=== PATIENT | female | born 1960 | race Caucasian/White ===

== ENCOUNTER 2017-06-08 08:08 | Inpatient (IN) | payer BC, OTHER ==
[~2017-06-08] VITALS: Ht 175.3 cm; Wt 108.9 kg
--- NOTE | 2017-06-08 08:10 | PHYS DOC ---
Past Medical History Past Medical History: Hypertension Past Surgical History: No Surgical History Alcohol Use: Occasionally Drug Use: None Adult General Chief Complaint Chief Complaint: NAUSEA/VOMITING/DIARRHA HPI HPI Patient is a 57 year old female presenting to the emergency department for evaluation of vomiting and generalized malaise fatigue abdominal pain fevers and chills. Symptoms started 2 days ago and she has tried drinking water and Gatorade for 2 days however she has been unable to hold anything down. Patient says that the abdominal pain is diffuse and crampy and mostly associated with the cough and vomiting. Emesis is nonbloody nonbilious and was initially food but now it is yellowish clear and is decreasing in amount. She says that she has been having normal bowel movements with no bloody diarrhea. She has been taking Tylenol and ibuprofen for pain and fever. She says her only medical problem is hypertension. She is tachycardic and slightly hypoxic but is nontoxic-appearing. She reports that she has had a lower right abdominal wall abscess for approximately one week but she does not know if she was bit by a spider or anything that she can think of. Review of Systems Review of Systems Constitutional: + fever, chills [] Eyes: Denies change in visual acuity, redness, or eye pain [] HENT: Denies nasal congestion or sore throat [] Respiratory: + cough. No shortness of breath [] Cardiovascular: No additional information not addressed in HPI [] GI: + abdominal pain, nausea, vomiting. No bloody stools or diarrhea [] : Denies dysuria or hematuria [] Musculoskeletal: Denies back pain or joint pain [] Integument: Denies rash or skin lesions [] Neurologic: Denies headache, focal weakness or sensory changes [] All other systems were reviewed and found to be within normal limits, except as documented in this note. Current Medications Current Medications Current Medications Medications (Trade) Dose Ordered Sig/Alex Start Time Stop Time Status Last Admin Dose Admin Acetaminophen (Tylenol) 650 mg PRN Q4HRS PRN 06/08/17 10:15 06/09/17 10:14 Ceftriaxone Sodium 2 gm/ Dextrose 100 ml @ 200 mls/hr Q24H 06/08/17 09:15 UNV Ceftriaxone Sodium (Rocephin) 2 gm 1X ONCE 06/08/17 09:30 06/08/17 09:31 DC 06/08/17 09:38 2 GM Fentanyl Citrate (Fentanyl 2ml Vial) 50 mcg PRN Q2HR PRN 06/08/17 10:15 06/09/17 10:14 Info (Do NOT chart on this entry -- for MONITORING) 1 each PRN DAILY PRN 06/08/17 09:45 06/10/17 09:44 Iohexol (Omnipaque 300 Mg/ml) 60 ml 1X ONCE 06/08/17 09:45 06/08/17 09:46 DC 06/08/17 10:18 60 ML Magnesium Oxide (Magnesium Oxide) 800 mg DAILY 06/08/17 10:00 06/08/17 09:39 800 MG Ondansetron HCl (Zofran) 4 mg PRN Q8HRS PRN 06/08/17 10:15 06/09/17 10:14 Promethazine HCl 12.5 mg/Sodium Chloride 50.5 ml @ 101 mls/hr 1X ONCE 06/08/17 10:00 06/08/17 10:29 DC 06/08/17 10:58 101 MLS/HR Sodium Chloride 1,000 ml @ 1,000 mls/hr 1X ONCE 06/08/17 09:30 06/08/17 10:29 DC 06/08/17 09:37 1,000 MLS/HR Allergies Allergies Allergies Coded Allergies Type Severity Reaction Last Updated Verified No Known Drug Allergies 04/25/15 No Physical Exam Physical Exam Constitutional: Well developed, well nourished, ill appearing but nontoxic HENT: Normocephalic, atraumatic, bilateral external ears normal, oropharynx moist, no oral exudates, nose normal. [] Eyes: PERRLA, EOMI, conjunctiva normal, no discharge. [] Neck: Normal range of motion, no tenderness, supple, no stridor. [] Cardiovascular:Heart rate tachycardic with regular rhythm, no murmur [] Lungs & Thorax: Bilateral breath sounds clear to auscultation [] Abdomen: Bowel sounds normal, soft, no tenderness, no masses, no pulsatile masses. [] Skin: On right lower abdomen there is approximately 2 x 2 centimeter abscess with overlying scab that I removed and then a moderate amount of purulence was drained and a culture was sent Back: No tenderness, no CVA tenderness. [] Extremities: No tenderness, no cyanosis, no clubbing, ROM intact, no edema. [] Neurologic: Alert and oriented X 3, normal motor function, normal sensory function, no focal deficits noted. [] Current Patient Data Vital Signs Vital Signs Date Time Temp Pulse Resp B/P (MAP) Pulse Ox O2 Delivery O2 Flow Rate FiO2 06/08/17 09:50 96 20 108/58 (75) 97 Nasal Cannula 2.0 06/08/17 09:20 101.1 101.1 Lab Values Laboratory Tests Test 06/08/17 08:15 06/08/17 08:30 06/08/17 09:00 Urine Collection Type Void Urine Color Alexis Urine Clarity Turbid Urine pH 5.5 Urine Specific [place] >=1.030 Urine Protein 100 mg/dL (NEG-TRACE) Urine Glucose (UA) Negative mg/dL (NEG) Urine Ketones (Stick) Trace mg/dL (NEG) Urine Blood Moderate (NEG) Urine Nitrite Positive (NEG) Urine Bilirubin Moderate (NEG) Urine Urobilinogen Dipstick 1.0 mg/dL (0.2 mg/dL) Urine Leukocyte Esterase Moderate (NEG) Urine RBC 3-5 /HPF (0-2) Urine WBC >40 /HPF (0-4) Urine Squamous Epithelial Cells Many /LPF Urine Bacteria Many /HPF (0-FEW) Urine Mucus Marked /LPF White Blood Count 23.1 x10^3/uL (4.0-11.0) H Red Blood Count 4.91 x10^6/uL (3.50-5.40) Hemoglobin 14.7 g/dL (12.0-15.5) Hematocrit 43.7 % (36.0-47.0) Mean Corpuscular Volume 89 fL (79-100) Mean Corpuscular Hemoglobin 30 pg (25-35) Mean Corpuscular Hemoglobin Concent 34 g/dL (31-37) Red Cell Distribution Width 13.7 % (11.5-14.5) Platelet Count 277 x10^3/uL (140-400) Neutrophils (%) (Auto) 96 % (31-73) H Lymphocytes (%) (Auto) 1 % (24-48) L Monocytes (%) (Auto) 3 % (0-9) Eosinophils (%) (Auto) 1 % (0-3) Basophils (%) (Auto) 0 % (0-3) Neutrophils # (Auto) 22.1 x10^3uL (1.8-7.7) H Lymphocytes # (Auto) 0.3 x10^3/uL (1.0-4.8) L Monocytes # (Auto) 0.6 x10^3/uL (0.0-1.1) Eosinophils # (Auto) 0.1 x10^3/uL (0.0-0.7) Basophils # (Auto) 0.0 x10^3/uL (0.0-0.2) Segmented Neutrophils % 82 % (35-66) H Band Neutrophils % 15 % (0-9) H Monocytes % 3 % (0-10) Platelet Estimate Adequate (ADEQUATE) Prothrombin Time 13.2 SEC (11.7-14.0) Prothrombin Time INR 1.1 (0.8-1.1) PTT 38 SEC (24-38) D-Dimer (Thao) 3.98 ug/mlFEU (0.00-0.50) H Sodium Level 133 mmol/L (136-145) L Potassium Level 3.8 mmol/L (3.5-5.1) Chloride Level 93 mmol/L (98-107) L Carbon Dioxide Level 28 mmol/L (21-32) Anion Gap 12 (6-14) Blood Urea Nitrogen 29 mg/dL (7-20) H Creatinine 1.5 mg/dL (0.6-1.0) H Estimated GFR (Cockcroft-Gault) 36.1 BUN/Creatinine Ratio 19 (6-20) Glucose Level 131 mg/dL (70-99) H Lactic Acid Level 3.2 mmol/L (0.4-2.0) H Calcium Level 8.8 mg/dL (8.5-10.1) Magnesium Level 1.5 mg/dL (1.8-2.4) L Total Bilirubin 1.9 mg/dL (0.2-1.0) H Aspartate Amino Transferase (AST) 23 U/L (15-37) Alanine Aminotransferase (ALT) 23 U/L (14-59) Alkaline Phosphatase 26 U/L (46-116) L Creatine Kinase 350 U/L (26-192) H Troponin I Quantitative < 0.017 ng/mL (0.000-0.055) QM-Rbj-R-Type Natriuretic Peptide 369 pg/mL (0-124) H Total Protein 7.4 g/dL (6.4-8.2) Albumin 3.2 g/dL (3.4-5.0) L Albumin/Globulin Ratio 0.8 (1.0-1.7) L Lipase 61 U/L (73-393) L Influenza Type A Antigen Negative (NEGATIVE) Influenza Type B Antigen Negative (NEGATIVE) Laboratory Tests 06/08/17 08:30 Laboratory Tests 06/08/17 08:30 Microbiology 06/08/17 Gram Stain - Final, Complete EKG EKG [] Radiology/Procedures Radiology/Procedures Single view chest and upright and supine AP views abdomen 06/08/2017 Clinical indication: Nausea. Comparison: None. Findings: Cardiac and mediastinal silhouettes are unremarkable. There is a tiny calcified granuloma in the right midlung. No pleural effusion, pneumothorax or focal consolidation. There is a nonobstructive bowel gas pattern with scattered colonic gas and stool. No pneumoperitoneum or evidence of portal venous gas. There is a 2.4 cm calcific density overlying the left iliac wing. Impression: 1. No acute cardiopulmonary abdomen the. 2. No radiographic evidence of bowel obstruction. 3. 2.4 cm calcific density overlying the left iliac wing, indeterminate. Nonemergent CT pelvis is recommended for further evaluation. These results were discussed with Dr. Jane of the emergency service by telephone at 9:10 AM 06/08/[address] Khloe Almeida. DICTATED and SIGNED BY: KHLOE ALMEIDA MD DATE: 06/08/1705 Course & Med Decision Making Course & Med Decision Making Patient meets sepsis criteria but not severe sepsis given she is not hypotensive or have a lactate over 4. Patient is getting IV fluids in addition to IV antibiotics. Pressors not needed this time. Source is not completely Clear given urine is somewhat contaminated. Abscess does not appear horrible to me as it is fairly small and spontaneously draining. Patient may get CT angiogram of chest if her d-dimer is elevated given she is somewhat hypoxic on presentation. Patient will get CT abdomen and pelvis regardless. CTs did not show any acute process. Patient is improving with fluids and antibiotics. She will be admitted to the hospital in guarded condition. Critical care time of 35 minutes. Dragon Disclaimer Dragon Disclaimer This electronic medical record was generated, in whole or in part, using a voice recognition dictation system. Departure Departure Impression: Primary Impression: Sepsis Additional Impressions: UTI (urinary tract infection) Abscess Lactic acid acidosis Hypomagnesemia Disposition: ADMITTED INPATIENT Admitting Physician: Ирина Wan Condition: STABLE Referrals: SO OROURKE (PCP) Problem Qualifiers Primary Impression: Sepsis Sepsis type: sepsis due to unspecified organism Qualified Codes: A41.9 - Sepsis, unspecified organism MAURICIO JANE DO Jun 08, 2017 08:10
[2017-06-08] MEDS ORDERED: fentaNYL PF VIAL 100 MCG/2 ML VIAL IV ONE (08:30)
[2017-06-08] MEDS ORDERED: IV NORMAL SALINE 1000ML BAG 1,000 ML IV ONE ×2 (08:30→09:30)
[2017-06-08] MEDS ORDERED: ONDANSETRON PF 4 MG/2 ML VIAL. IV ONE (08:30)
[2017-06-08 08:48] LABS: BASO % 0 % (0-3); EOS % 1 % (0-3); HEMATOCRIT 43.7 % (36.0-47.0); HEMOGLOBIN 14.7 g/dL (12.0-15.5); LYMPH # 0.3 x10^3/uL (1.0-4.8); LYMPH % 1 % (24-48); MEAN CORPUSCULAR HEMOGLOBIN 30 pg (25-35); MEAN CORPUSCULAR HGB CONC 34 g/dL (31-37); MEAN CORPUSCULAR VOLUME 89 fL (79-100); MONO % 3 % (0-9); NEUT % 96 % (31-73); PLATELET COUNT 277 x10^3/uL (140-400); RED BLOOD COUNT 4.91 x10^6/uL (3.50-5.40); RED CELL DISTRIBUTION WIDTH 13.7 % (11.5-14.5); WHITE BLOOD COUNT 23.1 x10^3/uL (4.0-11.0)
[2017-06-08 08:52] LABS: BILIRUBIN,URINE MODERATE (NEG); GLUCOSE,URINE NEGATIVE (NEG); NITRITE,URINE POSITIVE (NEG); PH,URINE 5.5; PROTEIN,URINE 100 mg/dL (NEG-TRACE)
[2017-06-08 08:53] LABS: BACTERIA,URINE MANY /HPF (0-FEW); SQUAMOUS EPITHELIAL CELL,UR MANY /LPF; WBC,URINE >40 /HPF (0-4)
[2017-06-08 09:12] LABS: CALCIUM 8.8 mg/dL (8.5-10.1); CREATININE 1.5 mg/dL (0.6-1.0); GFR 36.1; POTASSIUM 3.8 mmol/L (3.5-5.1)
--- NOTE | 2017-06-08 09:12 | RAD ---
Single view chest and upright and supine AP views abdomen 06/08/2017 Clinical indication: Nausea. Comparison: None. Findings: Cardiac and mediastinal silhouettes are unremarkable. There is a tiny calcified granuloma in the right midlung. No pleural effusion, pneumothorax or focal consolidation. There is a nonobstructive bowel gas pattern with scattered colonic gas and stool. No pneumoperitoneum or evidence of portal venous gas. There is a 2.4 cm calcific density overlying the left iliac wing. Impression: 1. No acute cardiopulmonary abdomen the. 2. No radiographic evidence of bowel obstruction. 3. 2.4 cm calcific density overlying the left iliac wing, indeterminate. Nonemergent CT pelvis is recommended for further evaluation. These results were discussed with Dr. Harrington of the emergency service by telephone at 9:10 AM 06/08/[address] Adrian Almeida.
[2017-06-08] MEDS ORDERED: cefTRIAXone SODIUM 2 GM in IV DEXTROSE 5% 100 ML IV SCH (09:15)
[2017-06-08 09:16] LABS: INR 1.1 (0.8-1.1); PROTHROMBIN TIME PATIENT 13.2 SEC (11.7-14.0)
[2017-06-08 09:22] LABS: ALBUMIN 3.2 g/dL (3.4-5.0); ALBUMIN/GLOBULIN RATIO 0.8 (1.0-1.7); MAGNESIUM 1.5 mg/dL (1.8-2.4); TOTAL BILIRUBIN 1.9 mg/dL (0.2-1.0); TOTAL PROTEIN 7.4 g/dL (6.4-8.2)
[2017-06-08 09:29] LABS: OBC FLU VALID
[2017-06-08] MEDS ORDERED: cefTRIAXone IV Push 2 GM VIAL. IVP ONE (09:30)
[2017-06-08] MEDS ORDERED: ACETAMINOPHEN 500 MG TABLET PO ONE (09:30)
[2017-06-08] MEDS: MAGNESIUM OXIDE 400 MG TABLET PO SCH (09:39)
[2017-06-08] MEDS ORDERED: IOHEXOL 300 MG/ML 100ML VIAL. IV ONE (09:45)
[2017-06-08] MEDS ORDERED: CONTRAST GIVEN MC PRN (09:45)
[2017-06-08 09:50] LABS: PLT ESTIMATE ADEQUATE (ADEQUATE)
[2017-06-08] MEDS ORDERED: PROMETHAZINE 12.5 MG in IV NORMAL SALINE 50ML 50 ML IV ONE (10:00)
[2017-06-08] MEDS ORDERED: ONDANSETRON PF 4 MG/2 ML VIAL. IV PRN (10:15)
[2017-06-08] MEDS: IV NORMAL SALINE 1000ML BAG 1,000 ML IV SCH ×3 (11:03→21:32)
--- NOTE | 2017-06-08 11:30 | RAD ---
CTA chest with contrast, CT abdomen and pelvis with contrast 06/08/2017 Clinical indication: Elevated d-dimer, chest pain, hypoxia, abdominal pain. Comparison: None. Technique: Multiple CTA images of the chest and CT abdomen and pelvis images were obtained following the intravenous menstruation of 75 mL Omnipaque 300. MIPS were obtained of the chest. PQRS Compliance Statement: One or more of the following individualized dose reduction techniques were utilized for this examination: 1. Automated exposure control 2. Adjustment of the mA and/or kV according to patient size 3. Use of iterative reconstruction technique Findings: CTA chest: Suboptimal evaluation of the major and subsegmental pulmonary arteries due to motion. No central pulmonary arterial filling defect. The thoracic aorta is normal in caliber. Incidental note is made of an apparent right subclavian artery with a retroesophageal course. No axillary, mediastinal or hilar lymphadenopathy. The central airways are patent. There are right lung calcified granulomas. No pleural effusion, pneumothorax or focal airspace consolidation. Evaluation of the lung parenchyma is limited due to motion, especially for pulmonary nodules. There is mild dependent atelectasis in both lungs. There are no destructive osseous lesions. CT abdomen and pelvis: Liver is unremarkable. There is a 1.0 mm nodular density at the fundus of the gallbladder series 3/image 43. Spleen is mildly enlarged measuring 13.5 cm. There is mild stranding adjacent to the left adrenal gland. Right adrenal gland, pancreas, and kidneys are unremarkable. Abdominal aorta is normal in caliber with mild aortoiliac calcified atheromatous disease. Major portal, splenic and visualized. Mesenteric veins are patent. Small and large bowel loops are normal in caliber without obstruction. Appendix is normal in appearance. No retroperitoneal or mesenteric lymphadenopathy. No pneumoperitoneum. No abdominal free fluid. Uterus, urinary bladder, and adnexa are unremarkable. No iliac or inguinal lymphadenopathy. No pelvic free fluid. There are no destructive osseous lesions. There is an irregular peripherally calcified structure in the subcutaneous tissues posterior to the left gluteus musculature, likely focal fat necrosis. Impression: CTA chest: Suboptimal evaluation of the major segmental and subsegmental pulmonary arteries due to motion. No central pulmonary artery filling defect to suggest pulmonary embolus. CT abdomen and pelvis: 1. 1.0 cm nodule adherent to the wall of the gallbladder fundus. Differential considerations include adherent sludge, noncalcified stone, adenomyomatosis, though gallbladder carcinoma cannot be excluded. Right upper quadrant ultrasound is recommended for further evaluation. 2. Mild stranding adjacent to the left adrenal gland, of doubtful clinical significance, although can be seen with mild adrenal hemorrhage. 3. Colonic diverticulosis without diverticulitis. 4. No bowel obstruction or free fluid. 5. Mild splenomegaly.
[2017-06-08 12:00] VITALS: BP 95/48
[2017-06-08] MEDS ORDERED: FLUO20CA16 PO (13:02)
[2017-06-08] MEDS ORDERED: HYDR12.53 PO (13:02)
[2017-06-08] MEDS ORDERED: LISI-334 PO (13:02)
[2017-06-08] MEDS ORDERED: MAGNESIUM SULFATE 2GM 50 ML IV ONE (13:30)
--- NOTE | 2017-06-08 14:08 | PDOC1 ---
History and Physical Date of Admission Date of Admission DATE: 06/08/17 TIME: 14:03 Identification/Chief Complaint Chief Complaint abd pain Problems: Source Source: Chart review History of Present Illness History of Present Illness Ms Teran, is a 57 year old female admit for acute abdominal pain with vomiting and generalized malaise fatigue and chills. Symptoms started 2 days ago and she has tried drinking water and Gatorade for 2 days but had worsened markedly, unable to keep PO intake down this AM abdominal pain is diffuse and crampy, worsened w. vomiting. Emesis is nonbloody nonbilious - yellowish clear no change in stools she feel much improved s/p interventions started in the ER Past Medical History Cardiovascular: HTN Pulmonary: No pertinent hx GI: No pertinent hx Heme/Onc: No pertinent hx Hepatobiliary: No pertinent hx Psych: Depression Musculoskeletal: low back pain ENT: No pertinent hx Renal/: No pertinent hx Family History Family History: Other Social History Smoke: No ALCOHOL: social (2 twice a week) Drugs: None Current Problem List Problem List Problems Medical Problems: (1) Abscess Status: Acute (2) Hypomagnesemia Status: Acute (3) Lactic acid acidosis Status: Acute (4) Sepsis Status: Acute (5) UTI (urinary tract infection) Status: Acute Problems: Current Medications Current Medications Current Medications Ondansetron HCl (Zofran) 8 mg 1X ONCE IV Last administered on 06/08/17 08:52 ; Start 06/08/17 at 08:30; Stop 06/08/17 at 08:31; Status DC Fentanyl Citrate (Fentanyl 2ml Vial) 75 mcg 1X ONCE IV Last administered on 08:53; Start 06/08/17 at 08:30; Stop 06/08/17 at 08:31; Status DC Sodium Chloride 1,000 ml @ 1,000 mls/hr 1X ONCE IV Last administered on 06/08 08:50; Start 06/08/17 at 08:30; Stop 06/08/17 at 09:29; Status DC Ceftriaxone Sodium 2 gm/ Dextrose 100 ml @ 200 mls/hr Q24H IV ; Start at 09:15; Status UNV Ceftriaxone Sodium (Rocephin) 2 gm 1X ONCE IVP Last administered on 09:38; Start 06/08/17 at 09:30; Stop 06/08/17 at 09:31; Status DC Sodium Chloride 1,000 ml @ 1,000 mls/hr 1X ONCE IV Last administered on 06/08 09:37; Start 06/08/17 at 09:30; Stop 06/08/17 at 10:29; Status DC Acetaminophen (Tylenol) 1,000 mg 1X ONCE PO Last administered on 06/08/17 09 :38; Start 06/08/17 at 09:30; Stop 06/08/17 at 09:31; Status DC Ceftriaxone Sodium (Rocephin) 2 gm Q24H IVP ; Start 06/09/17 at 10:00 Magnesium Oxide (Magnesium Oxide) 800 mg DAILY PO Last administered on 09:39; Start 06/08/17 at 10:00 Iohexol (Omnipaque 300 Mg/ml) 60 ml 1X ONCE IV Last administered on 10:18; Start 06/08/17 at 09:45; Stop 06/08/17 at 09:46; Status DC Info (Do NOT chart on this entry -- for MONITORING) 1 each PRN DAILY PRN MC SEE COMMENTS; Start 06/08/17 at 09:45; Stop 06/10/17 at 09:44 Promethazine HCl 12.5 mg/Sodium Chloride 50.5 ml @ 101 mls/hr 1X ONCE IV Last administered on 06/08/17 10:58; Start 06/08/17 at 10:00; Stop 06/08/17 at 10:29; Status DC Ondansetron HCl (Zofran) 4 mg PRN Q8HRS PRN IV NAUSEA/VOMITING; Start at 10:15; Stop 06/09/17 at 10:14 Fentanyl Citrate (Fentanyl 2ml Vial) 50 mcg PRN Q2HR PRN IV PAIN; Start at 10:15; Stop 06/09/17 at 10:14 Sodium Chloride 1,000 ml @ 100 mls/hr Q10H IV Last administered on 06/08/17 12:15; Start 06/08/17 at 10:30; Stop 06/09/17 at 10:29 Acetaminophen (Tylenol) 650 mg PRN Q4HRS PRN PO FEVER; Start 06/08/17 at 10:15 ; Stop 06/09/17 at 10:14 Magnesium Sulfate/ Dextrose 50 ml @ 25 mls/hr 1X ONCE IV ; Start 06/08/17 at 13:30; Stop 06/08/17 at 13:30; Status DC Albuterol/ Ipratropium (Duoneb) 3 ml RTQID NEB ; Start 06/08/17 at 13:30 Active Scripts Active Reported Prozac (Fluoxetine Hcl) 20 Mg Capsule 1 Cap PO [id number] Hydrochlorothiazide Capsule (Hydrochlorothiazide) 12.5 Mg Capsule 1 Cap PO DAILY Lisinopril 20 Mg Tablet 1 Tab PO DAILY Allergies Allergies: Coded Allergies: No Known Drug Allergies (Unverified , 04/25/15) ROS General: YES: Chills, Night Sweats, Fatigue, No: Malaise, Appetite, Other PSYCHOLOGICAL ROS: No: Anxiety, Behavioral Disorder, Concentration difficultie , Decreased libido, Depression, Disorientation, Hallucinations, Hostility, Irritablity, Memory difficulties, Mood Swings, Obsessive thoughts, Physical abuse, Sexual abuse, Sleep disturbances, Suicidal ideation, Other Eyes: No Blurry vision, No Decreased vision, No Double vision, No Dry eyes, No Excessive tearing, No Eye Pain, No Itchy Eyes, No Loss of vision, No Photophobia , No Scotomata, No Uses contacts, No Uses glasses, No Other HEENT: No: Heacaches, Visual Changes, Hearing change, Nasal congestion, Nasal discharge, Oral lesions, Sinus pain, Sore Throat, Epistaxis, Sneezing, Snoring, Tinnitus, Vertigo, Vocal changes, Other Breast: No New/Changing Breast Lumps, No Nipple changes, No Nipple discharge, No Other Respiratory: No: Cough, Hemoptysis, Orthopnea, Pleuritic Pain, Shortness of breath, SOB with excertion, Sputum Changes, Stridor, Tachypnea, Wheezing, Other Cardiovascular: No Chest Pain, No Palpitations, No Orthopnea, No Paroxysmal Noc. Dyspnea, No Edema, No Lt Headedness, No Other Gastrointestinal: Yes Nausea, Yes Vomiting, Yes Abdominal Pain, No Diarrhea, No Constipation, No Melena, No Hematochezia, No Other Genitourinary: No Dysuria, No Frequency, No Incontinence, No Hematuria, No Retention, No Discharge, No Urgency, No Pain, No Flank Pain, No Other, No , No , No , No , No , No , No Musculoskeletal: Yes Joint Pain, No Gait Disturbance, No Joint Stiffness, No Joint Swelling, No Muscle Pain, No Muscular Weakness, No Pain In:, No Swelling In:, No Other Neurological: No Behavorial Changes, No Bowel/Bladder ControlChng, No Confusion , No Dizziness, No Gait Disturbance, No Headaches, No Impaired Coord/balance, No Memory Loss, No Numbness/Tingling, No Seizures, No Speech Problems, No Tremors, No Visual Changes, No Weakness, No Other Skin: No Dry Skin, No Eczema, No Hair Changes, No Lumps, No Mole Changes, No Mottling, No Nail Changes, No Pruritus, No Rash, No Skin Lesion Changes, No Other, No Acne Physical Exam General: Alert, Cooperative, mild distress HEENT: Atraumatic, PERRLA, EOMI Lungs: Clear to auscultation, Normal air movement Heart: no gallops, no murmurs Abdomen: Normal bowel sounds, Soft Extremities: No clubbing, No edema Skin: No breakdown Neuro: Normal gait, Sensation intact, Cranial nerves 3-12 NL Psych/Mental Status: Mental status NL, Mood NL Vitals Vitals Vital Signs Date Time Temp Pulse Resp B/P (MAP) Pulse Ox O2 Delivery O2 Flow Rate FiO2 06/08/17 12:00 99.5 88 20 95/48 (64) 94 Nasal Cannula 2.0 99.5 Labs Labs Laboratory Tests Test 06/08/17 08:15 06/08/17 08:30 06/08/17 09:00 06/08/17 10:40 Urine Collection Type Void Urine Color [place] Urine Clarity Turbid Urine pH 5.5 Urine Specific [place] >=1.030 Urine Protein 100 mg/dL (NEG-TRACE) Urine Glucose (UA) Negative mg/dL (NEG) Urine Ketones (Stick) Trace mg/dL (NEG) Urine Blood Moderate (NEG) Urine Nitrite Positive (NEG) Urine Bilirubin Moderate (NEG) Urine Urobilinogen Dipstick 1.0 mg/dL (0.2 mg/dL) Urine Leukocyte Esterase Moderate (NEG) Urine RBC 3-5 /HPF (0-2) Urine WBC >40 /HPF (0-4) Urine Squamous Epithelial Cells Many /LPF Urine Bacteria Many /HPF (0-FEW) Urine Mucus Marked /LPF White Blood Count 23.1 x10^3/uL (4.0-11.0) Red Blood Count 4.91 x10^6/uL (3.50-5.40) Hemoglobin 14.7 g/dL (12.0-15.5) Hematocrit 43.7 % (36.0-47.0) Mean Corpuscular Volume 89 fL (79-100) Mean Corpuscular Hemoglobin 30 pg (25-35) Mean Corpuscular Hemoglobin Concent 34 g/dL (31-37) Red Cell Distribution Width 13.7 % (11.5-14.5) Platelet Count 277 x10^3/uL (140-400) Neutrophils (%) (Auto) 96 % (31-73) Lymphocytes (%) (Auto) 1 % (24-48) Monocytes (%) (Auto) 3 % (0-9) Eosinophils (%) (Auto) 1 % (0-3) Basophils (%) (Auto) 0 % (0-3) Neutrophils # (Auto) 22.1 x10^3uL (1.8-7.7) Lymphocytes # (Auto) 0.3 x10^3/uL (1.0-4.8) Monocytes # (Auto) 0.6 x10^3/uL (0.0-1.1) Eosinophils # (Auto) 0.1 x10^3/uL (0.0-0.7) Basophils # (Auto) 0.0 x10^3/uL (0.0-0.2) Segmented Neutrophils % 82 % (35-66) Band Neutrophils % 15 % (0-9) Monocytes % 3 % (0-10) Platelet Estimate Adequate (ADEQUATE) Prothrombin Time 13.2 SEC (11.7-14.0) Prothromb Time International Ratio 1.1 (0.8-1.1) Activated Partial Thromboplast Time 38 SEC (24-38) D-Dimer (Thao) 3.98 ug/mlFEU (0.00-0.50) Sodium Level 133 mmol/L (136-145) Potassium Level 3.8 mmol/L (3.5-5.1) Chloride Level 93 mmol/L (98-107) Carbon Dioxide Level 28 mmol/L (21-32) Anion Gap 12 (6-14) Blood Urea Nitrogen 29 mg/dL (7-20) Creatinine 1.5 mg/dL (0.6-1.0) Estimated GFR (Cockcroft-Gault) 36.1 BUN/Creatinine Ratio 19 (6-20) Glucose Level 131 mg/dL (70-99) Lactic Acid Level 3.2 mmol/L (0.4-2.0) 1.8 mmol/L (0.4-2.0) Calcium Level 8.8 mg/dL (8.5-10.1) Magnesium Level 1.5 mg/dL (1.8-2.4) Total Bilirubin 1.9 mg/dL (0.2-1.0) Aspartate Amino Transf (AST/SGOT) 23 U/L (15-37) Alanine Aminotransferase (ALT/SGPT) 23 U/L (14-59) Alkaline Phosphatase 26 U/L (46-116) Creatine Kinase 350 U/L (26-192) Troponin I Quantitative < 0.017 ng/mL (0.000-0.055) JN-Gyg-M-Type Natriuretic Peptide 369 pg/mL (0-124) Total Protein 7.4 g/dL (6.4-8.2) Albumin 3.2 g/dL (3.4-5.0) Albumin/Globulin Ratio 0.8 (1.0-1.7) Lipase 61 U/L (73-393) Influenza Type A Antigen Negative (NEGATIVE) Influenza Type B Antigen Negative (NEGATIVE) Laboratory Tests Test 06/08/17 08:15 06/08/17 08:30 06/08/17 09:00 06/08/17 10:40 Urine Collection Type Void Urine Color [place] Urine Clarity Turbid Urine pH 5.5 Urine Specific [place] >=1.030 Urine Protein 100 mg/dL (NEG-TRACE) Urine Glucose (UA) Negative mg/dL (NEG) Urine Ketones (Stick) Trace mg/dL (NEG) Urine Blood Moderate (NEG) Urine Nitrite Positive (NEG) Urine Bilirubin Moderate (NEG) Urine Urobilinogen Dipstick 1.0 mg/dL (0.2 mg/dL) Urine Leukocyte Esterase Moderate (NEG) Urine RBC 3-5 /HPF (0-2) Urine WBC >40 /HPF (0-4) Urine Squamous Epithelial Cells Many /LPF Urine Bacteria Many /HPF (0-FEW) Urine Mucus Marked /LPF White Blood Count 23.1 x10^3/uL (4.0-11.0) Red Blood Count 4.91 x10^6/uL (3.50-5.40) Hemoglobin 14.7 g/dL (12.0-15.5) Hematocrit 43.7 % (36.0-47.0) Mean Corpuscular Volume 89 fL (79-100) Mean Corpuscular Hemoglobin 30 pg (25-35) Mean Corpuscular Hemoglobin Concent 34 g/dL (31-37) Red Cell Distribution Width 13.7 % (11.5-14.5) Platelet Count 277 x10^3/uL (140-400) Neutrophils (%) (Auto) 96 % (31-73) Lymphocytes (%) (Auto) 1 % (24-48) Monocytes (%) (Auto) 3 % (0-9) Eosinophils (%) (Auto) 1 % (0-3) Basophils (%) (Auto) 0 % (0-3) Neutrophils # (Auto) 22.1 x10^3uL (1.8-7.7) Lymphocytes # (Auto) 0.3 x10^3/uL (1.0-4.8) Monocytes # (Auto) 0.6 x10^3/uL (0.0-1.1) Eosinophils # (Auto) 0.1 x10^3/uL (0.0-0.7) Basophils # (Auto) 0.0 x10^3/uL (0.0-0.2) Segmented Neutrophils % 82 % (35-66) Band Neutrophils % 15 % (0-9) Monocytes % 3 % (0-10) Platelet Estimate Adequate (ADEQUATE) Prothrombin Time 13.2 SEC (11.7-14.0) Prothromb Time International Ratio 1.1 (0.8-1.1) Activated Partial Thromboplast Time 38 SEC (24-38) D-Dimer (Thao) 3.98 ug/mlFEU (0.00-0.50) Sodium Level 133 mmol/L (136-145) Potassium Level 3.8 mmol/L (3.5-5.1) Chloride Level 93 mmol/L (98-107) Carbon Dioxide Level 28 mmol/L (21-32) Anion Gap 12 (6-14) Blood Urea Nitrogen 29 mg/dL (7-20) Creatinine 1.5 mg/dL (0.6-1.0) Estimated GFR (Cockcroft-Gault) 36.1 BUN/Creatinine Ratio 19 (6-20) Glucose Level 131 mg/dL (70-99) Lactic Acid Level 3.2 mmol/L (0.4-2.0) 1.8 mmol/L (0.4-2.0) Calcium Level 8.8 mg/dL (8.5-10.1) Magnesium Level 1.5 mg/dL (1.8-2.4) Total Bilirubin 1.9 mg/dL (0.2-1.0) Aspartate Amino Transf (AST/SGOT) 23 U/L (15-37) Alanine Aminotransferase (ALT/SGPT) 23 U/L (14-59) Alkaline Phosphatase 26 U/L (46-116) Creatine Kinase 350 U/L (26-192) Troponin I Quantitative < 0.017 ng/mL (0.000-0.055) XB-Hpn-N-Type Natriuretic Peptide 369 pg/mL (0-124) Total Protein 7.4 g/dL (6.4-8.2) Albumin 3.2 g/dL (3.4-5.0) Albumin/Globulin Ratio 0.8 (1.0-1.7) Lipase 61 U/L (73-393) Influenza Type A Antigen Negative (NEGATIVE) Influenza Type B Antigen Negative (NEGATIVE) VTE Prophylaxis Ordered VTE Prophylaxis Devices: Yes VTE Pharmacological Prophylaxi: No Assessment/Plan Assessment/Plan hypoxia acute abdomen pain sepsis UTI, likely pyelonephritis, acute renal failure, vasomotor, salomon hydrate other obesity,BMI 33 depression hypertension JHON JUAREZ MD Jun 08, 2017 14:08
[2017-06-08 15:00] VITALS: BP_SYST 100; BP_SYST 99; BP_DIAS 48; BP_DIAS 56
[2017-06-08 16:00] VITALS: BP 104/61
--- NOTE | 2017-06-08 16:27 | PDOC ---
Infectious Disease Note Vital Sign Vital Signs Vital Signs Date Time Temp Pulse Resp B/P (MAP) Pulse Ox O2 Delivery O2 Flow Rate FiO2 06/08/17 16:00 104/61 (75) 06/08/17 15:00 97.9 88 16 96 Nasal Cannula 2.0 97.9 Labs Lab Laboratory Tests Test 06/08/17 08:15 06/08/17 08:30 06/08/17 09:00 06/08/17 10:40 Urine Collection Type Void Urine Color [place] Urine Clarity Turbid Urine pH 5.5 Urine Specific [place] >=1.030 Urine Protein 100 mg/dL (NEG-TRACE) Urine Glucose (UA) Negative mg/dL (NEG) Urine Ketones (Stick) Trace mg/dL (NEG) Urine Blood Moderate (NEG) Urine Nitrite Positive (NEG) Urine Bilirubin Moderate (NEG) Urine Urobilinogen Dipstick 1.0 mg/dL (0.2 mg/dL) Urine Leukocyte Esterase Moderate (NEG) Urine RBC 3-5 /HPF (0-2) Urine WBC >40 /HPF (0-4) Urine Squamous Epithelial Cells Many /LPF Urine Bacteria Many /HPF (0-FEW) Urine Mucus Marked /LPF White Blood Count 23.1 x10^3/uL (4.0-11.0) Red Blood Count 4.91 x10^6/uL (3.50-5.40) Hemoglobin 14.7 g/dL (12.0-15.5) Hematocrit 43.7 % (36.0-47.0) Mean Corpuscular Volume 89 fL (79-100) Mean Corpuscular Hemoglobin 30 pg (25-35) Mean Corpuscular Hemoglobin Concent 34 g/dL (31-37) Red Cell Distribution Width 13.7 % (11.5-14.5) Platelet Count 277 x10^3/uL (140-400) Neutrophils (%) (Auto) 96 % (31-73) Lymphocytes (%) (Auto) 1 % (24-48) Monocytes (%) (Auto) 3 % (0-9) Eosinophils (%) (Auto) 1 % (0-3) Basophils (%) (Auto) 0 % (0-3) Neutrophils # (Auto) 22.1 x10^3uL (1.8-7.7) Lymphocytes # (Auto) 0.3 x10^3/uL (1.0-4.8) Monocytes # (Auto) 0.6 x10^3/uL (0.0-1.1) Eosinophils # (Auto) 0.1 x10^3/uL (0.0-0.7) Basophils # (Auto) 0.0 x10^3/uL (0.0-0.2) Segmented Neutrophils % 82 % (35-66) Band Neutrophils % 15 % (0-9) Monocytes % 3 % (0-10) Platelet Estimate Adequate (ADEQUATE) Prothrombin Time 13.2 SEC (11.7-14.0) Prothromb Time International Ratio 1.1 (0.8-1.1) Activated Partial Thromboplast Time 38 SEC (24-38) D-Dimer (Thao) 3.98 ug/mlFEU (0.00-0.50) Sodium Level 133 mmol/L (136-145) Potassium Level 3.8 mmol/L (3.5-5.1) Chloride Level 93 mmol/L (98-107) Carbon Dioxide Level 28 mmol/L (21-32) Anion Gap 12 (6-14) Blood Urea Nitrogen 29 mg/dL (7-20) Creatinine 1.5 mg/dL (0.6-1.0) Estimated GFR (Cockcroft-Gault) 36.1 BUN/Creatinine Ratio 19 (6-20) Glucose Level 131 mg/dL (70-99) Lactic Acid Level 3.2 mmol/L (0.4-2.0) 1.8 mmol/L (0.4-2.0) Calcium Level 8.8 mg/dL (8.5-10.1) Magnesium Level 1.5 mg/dL (1.8-2.4) Total Bilirubin 1.9 mg/dL (0.2-1.0) Aspartate Amino Transf (AST/SGOT) 23 U/L (15-37) Alanine Aminotransferase (ALT/SGPT) 23 U/L (14-59) Alkaline Phosphatase 26 U/L (46-116) Creatine Kinase 350 U/L (26-192) Troponin I Quantitative < 0.017 ng/mL (0.000-0.055) NQ-Myh-V-Type Natriuretic Peptide 369 pg/mL (0-124) Total Protein 7.4 g/dL (6.4-8.2) Albumin 3.2 g/dL (3.4-5.0) Albumin/Globulin Ratio 0.8 (1.0-1.7) Lipase 61 U/L (73-393) Influenza Type A Antigen Negative (NEGATIVE) Influenza Type B Antigen Negative (NEGATIVE) Objective Assessment Sepsis w/ lactic acidosis, POA Abdominal pain, ? UTI or GB nausea and vomiting, resolving Fever Leukocytosis Hypoxia Abdominal wall abscess - GPC Plan Plan of Care Rocephin Await GPC ID f/u am labs Thank you [id number] Pt seen and examined,D/W DEVELOPMENT REP says fever has been coming down nausea and vomiting improving Will broaden coverage to zosyn and zyvox for now abdo wall abscess drained U/S report pending CT abdomen and CTA report reveiwed Monitor c/s and labs in am encourage fluids SUSY VALENTIN APRN Jun 08, 2017 16:27 RODO MONSIVAIS MD Jun 08, 2017 19:40
[2017-06-08] MEDS: FLUoxetine HCL 20 MG CAPSULE PO SCH (16:31)
[2017-06-08] MEDS: ACETAMINOPHEN 325 MG TABLET. PO PRN (16:46)
[2017-06-08] MEDS: IPRATRPIUM/ALBUTEROL 0.5/2.5MG 3 ML NEBU. NEB SCH ×2 (16:57→19:13)
[2017-06-08 19:00] VITALS: BP 101/52
[2017-06-08] MEDS: fentaNYL PF VIAL 100 MCG/2 ML VIAL IV PRN (20:09)
--- NOTE | 2017-06-08 21:27 | CONS ---
DATE OF CONSULTATION: 06/08/2017 DICTATING PHYSICIAN: Jonah Iglesias APRN. REFERRING PHYSICIAN: Dr. Fajardo. REASON FOR CONSULTATION: Sepsis. HISTORY OF PRESENT ILLNESS: This patient is a 57-year-old female who woke up 3 days ago with a slight upset stomach. She thought she might be hungry. However, after she ate, she threw up. Over the following 2 days, symptoms worsened. She was unable to keep fluids down. She developed fevers and chills. Stools remained normal. She took Tylenol and ibuprofen for some relief. On arrival to the ER, she had a temperature of 101.1 with elevated white blood cell count of 23,100, segs 82%, bands 15% along with a lactic acid of 3.2. On exam, she was found to have a small 2 x 2 cm abscess located on the right lower abdomen. After removing the scab, a purulent drainage was noted. A Gram stain is showing gram-positive cocci. She was started on ceftriaxone in the ER. The patient noticed the small abscess about a week ago. She denies history of skin or soft tissue infections. She reports feeling a little bit better. The abdominal pain is more localized to the lower mid area. She denies dysuria, frequency or urgency. She is on supplemental oxygen for hypoxia associated with a dry cough. Denies chest pain, wheezing or shortness of air. She denies antibiotics within the last 6 months. She denies ill contacts or recent travel. PAST MEDICAL HISTORY: 1. Diverticulitis. 2. Hypertension. 3. Gastroesophageal reflux disease. 4. Arthritis. PAST SURGICAL HISTORY: No significant past surgeries. ALLERGIES: No known drug allergies. MEDICATIONS: Ceftriaxone. Other medications are available and have been reviewed on the MAR. REVIEW OF SYSTEMS: As per HPI, otherwise all other review of systems are negative. PHYSICAL EXAMINATION: GENERAL: female lying down, in no apparent distress. VITAL SIGNS: Temperature is 97.9, T max 101.1, blood pressure 104/61, heart rate 88, respiratory rate 16, pulse oximetry is 96% on 2 liters nasal cannula, weight is 227 pounds and BMI 33.5. HEENT: Pupils equally round and reactive. Oral cavity, pharynx pink and moist. NECK: Supple. LUNGS: Clear to auscultation. Nonlabored. HEART: Normal S1 and S2. ABDOMEN: Obese. Bowel sounds active. Soft, mildly tender lower mid abdomen. A small wound with mild erythema noted, right lower quadrant. EXTREMITIES: No edema or cyanosis. SKIN: Without rash. NEUROLOGICAL: Alert and oriented x 3. Moves all extremities. LABORATORY DATA: Today's WBC 22.1; hemoglobin 14.7; platelet count 277,000; segs 82% and bands 15%. Sodium 133, potassium 3.8, creatinine 1.5, BUN 29 and glucose 131. Lactic acid 1.8 from 3.2. Total bilirubin 1.9, AST 23 and ALT 23. Creatinine kinase 350. Troponin less than 0.017. BNP 369. Albumin 3.2. Lipase 61. Urinalysis positive for wbc's, leukocyte esterase, nitrite and many squamous epithelial cells with bacteria. Influenza screen negative. Acute abdominal series showed no radiographic evidence of bowel obstruction, 2.4 cm calcific density overlying the left iliac wing indeterminate. Abdominal/pelvis CT showed a 1.0 cm nodule adherent to the wall of the gallbladder fundus, mild stranding adjacent to the left adrenal gland, colonic diverticulosis without diverticulitis and no bowel obstruction or free fluid and mild splenomegaly. CTA chest was suboptimal. No central pulmonary artery filling defect to suggest pulmonary embolus. Ultrasound pending. IMPRESSION: 1. Sepsis with lactic acidosis, persists on admission. 2. Abdominal pain with questionable urinary tract infection. 3. Fever. 4. Leukocytosis. 5. Hypoxia. 6. Abdominal wall abscess with gram-positive cocci. 7.nausea and vomiting PLAN: Continue the antibiotics. Await gram-positive cocci identification and susceptibilities of G/S. We will follow up with morning laboratory values. Hydration. Discussed with the patient's . Thank you, Dr. Fajardo for asking us to participate in this patient's care. Should you have further questions or concerns, please call. RODO MONSIVAIS MD DR: TRISH/tiny JOB#: [id number] / [id number] ALESSIO
[2017-06-08 23:00] VITALS: BP 110/62
[2017-06-09] MEDS ORDERED: PIPERACILLIN/TAZOBACTAM 3.375 GM in IV DEXTROSE 5% 50 ML IV SCH ×2
[2017-06-09] MEDS: PIPERACILLIN/TAZO IV Push 3.375 GM VIAL. IVP SCH ×5 (00:29→23:35)
[2017-06-09] MEDS: fentaNYL PF VIAL 100 MCG/2 ML VIAL IV PRN (00:44)
[2017-06-09 03:12] VITALS: BP 92/56
[2017-06-09 05:17] LABS: BASO % 0 % (0-3); EOS % 5 % (0-3); HEMATOCRIT 37.4 % (36.0-47.0); HEMOGLOBIN 12.8 g/dL (12.0-15.5); LYMPH # 0.3 x10^3/uL (1.0-4.8); LYMPH % 2 % (24-48); MEAN CORPUSCULAR HEMOGLOBIN 31 pg (25-35); MEAN CORPUSCULAR HGB CONC 34 g/dL (31-37); MEAN CORPUSCULAR VOLUME 89 fL (79-100); MONO % 4 % (0-9); NEUT % 89 % (31-73); PLATELET COUNT 197 x10^3/uL (140-400); RED BLOOD COUNT 4.19 x10^6/uL (3.50-5.40); RED CELL DISTRIBUTION WIDTH 13.6 % (11.5-14.5); WHITE BLOOD COUNT 13.9 x10^3/uL (4.0-11.0)
[2017-06-09 05:40] LABS: CALCIUM 7.8 mg/dL (8.5-10.1); CREATININE 0.8 mg/dL (0.6-1.0); GFR 74.5; POTASSIUM 3.2 mmol/L (3.5-5.1)
[2017-06-09 07:00] VITALS: BP 101/57
[2017-06-09] MEDS: IPRATRPIUM/ALBUTEROL 0.5/2.5MG 3 ML NEBU. NEB SCH ×4 (07:29→21:22)
[2017-06-09] MEDS: ACETAMINOPHEN 325 MG TABLET. PO PRN (07:36)
[2017-06-09] MEDS: FLUoxetine HCL 20 MG CAPSULE PO SCH (07:43)
[2017-06-09] MEDS: MAGNESIUM OXIDE 400 MG TABLET PO SCH (07:43)
[2017-06-09] MEDS ORDERED: POTASSIUM CHLORIDE 20 MEQ TABLET.ER. PO ONE (09:15)
--- NOTE | 2017-06-09 09:24 | PDOC ---
PROGRESS NOTES Chief Complaint Chief Complaint acute hypoxia respiratory failure on admit, improved, acute abdomen pain, sepsis UTI, likely pyelonephritis, acute renal failure, vasomotor, salomon hydrate obesity,BMI 33 depression hypertension History of Present Illness History of Present Illness hands swollen and painful today she is hungry this AM for the first time in 3 days, feels much improved overall, vitals improved, labs better hypokalemia, hypomag, replaced Vitals Vitals Vital Signs Date Time Temp Pulse Resp B/P (MAP) Pulse Ox O2 Delivery O2 Flow Rate FiO2 06/09/17 07:30 94 Nasal Cannula 2.0 06/09/17 07:00 99.3 76 20 101/57 (72) 99.3 Physical Exam General: Alert, Cooperative, No acute distress Heart: Regular rate, No murmurs Abdomen: Normal bowel sounds, Soft Extremities: No clubbing, Other (hands swollen, edema to hand and feet, ) Skin: No breakdown Labs LABS Laboratory Tests Test 06/08/17 10:40 06/09/17 04:30 Lactic Acid Level 1.8 mmol/L (0.4-2.0) White Blood Count 13.9 x10^3/uL (4.0-11.0) Red Blood Count 4.19 x10^6/uL (3.50-5.40) Hemoglobin 12.8 g/dL (12.0-15.5) Hematocrit 37.4 % (36.0-47.0) Mean Corpuscular Volume 89 fL (79-100) Mean Corpuscular Hemoglobin 31 pg (25-35) Mean Corpuscular Hemoglobin Concent 34 g/dL (31-37) Red Cell Distribution Width 13.6 % (11.5-14.5) Platelet Count 197 x10^3/uL (140-400) Neutrophils (%) (Auto) 89 % (31-73) Lymphocytes (%) (Auto) 2 % (24-48) Monocytes (%) (Auto) 4 % (0-9) Eosinophils (%) (Auto) 5 % (0-3) Basophils (%) (Auto) 0 % (0-3) Neutrophils # (Auto) 12.4 x10^3uL (1.8-7.7) Lymphocytes # (Auto) 0.3 x10^3/uL (1.0-4.8) Monocytes # (Auto) 0.5 x10^3/uL (0.0-1.1) Eosinophils # (Auto) 0.6 x10^3/uL (0.0-0.7) Basophils # (Auto) 0.0 x10^3/uL (0.0-0.2) Sodium Level 135 mmol/L (136-145) Potassium Level 3.2 mmol/L (3.5-5.1) Chloride Level 99 mmol/L (98-107) Carbon Dioxide Level 27 mmol/L (21-32) Anion Gap 9 (6-14) Blood Urea Nitrogen 13 mg/dL (7-20) Creatinine 0.8 mg/dL (0.6-1.0) Estimated GFR (Cockcroft-Gault) 74.5 Glucose Level 99 mg/dL (70-99) Calcium Level 7.8 mg/dL (8.5-10.1) Review of Systems Review of Systems hand pain, weakness hungry no nausea, str better Assessment and Plan Assessmemt and Plan Problems Medical Problems: (1) Abscess Status: Acute (2) Hypomagnesemia Status: Acute (3) Lactic acid acidosis Status: Acute (4) Sepsis Status: Acute (5) UTI (urinary tract infection) Status: Acute Problems: Comment Review of Relevant I have reviewed the following items rambo (where applicable) has been applied. Labs Laboratory Tests Test 06/08/17 08:15 06/08/17 08:30 06/08/17 09:00 06/08/17 10:40 Urine Collection Type Void Urine Color [place] Urine Clarity Turbid Urine pH 5.5 Urine Specific [place] >=1.030 Urine Protein 100 mg/dL (NEG-TRACE) Urine Glucose (UA) Negative mg/dL (NEG) Urine Ketones (Stick) Trace mg/dL (NEG) Urine Blood Moderate (NEG) Urine Nitrite Positive (NEG) Urine Bilirubin Moderate (NEG) Urine Urobilinogen Dipstick 1.0 mg/dL (0.2 mg/dL) Urine Leukocyte Esterase Moderate (NEG) Urine RBC 3-5 /HPF (0-2) Urine WBC >40 /HPF (0-4) Urine Squamous Epithelial Cells Many /LPF Urine Bacteria Many /HPF (0-FEW) Urine Mucus Marked /LPF White Blood Count 23.1 x10^3/uL (4.0-11.0) Red Blood Count 4.91 x10^6/uL (3.50-5.40) Hemoglobin 14.7 g/dL (12.0-15.5) Hematocrit 43.7 % (36.0-47.0) Mean Corpuscular Volume 89 fL (79-100) Mean Corpuscular Hemoglobin 30 pg (25-35) Mean Corpuscular Hemoglobin Concent 34 g/dL (31-37) Red Cell Distribution Width 13.7 % (11.5-14.5) Platelet Count 277 x10^3/uL (140-400) Neutrophils (%) (Auto) 96 % (31-73) Lymphocytes (%) (Auto) 1 % (24-48) Monocytes (%) (Auto) 3 % (0-9) Eosinophils (%) (Auto) 1 % (0-3) Basophils (%) (Auto) 0 % (0-3) Neutrophils # (Auto) 22.1 x10^3uL (1.8-7.7) Lymphocytes # (Auto) 0.3 x10^3/uL (1.0-4.8) Monocytes # (Auto) 0.6 x10^3/uL (0.0-1.1) Eosinophils # (Auto) 0.1 x10^3/uL (0.0-0.7) Basophils # (Auto) 0.0 x10^3/uL (0.0-0.2) Segmented Neutrophils % 82 % (35-66) Band Neutrophils % 15 % (0-9) Monocytes % 3 % (0-10) Platelet Estimate Adequate (ADEQUATE) Prothrombin Time 13.2 SEC (11.7-14.0) Prothromb Time International Ratio 1.1 (0.8-1.1) Activated Partial Thromboplast Time 38 SEC (24-38) D-Dimer (Thao) 3.98 ug/mlFEU (0.00-0.50) Sodium Level 133 mmol/L (136-145) Potassium Level 3.8 mmol/L (3.5-5.1) Chloride Level 93 mmol/L (98-107) Carbon Dioxide Level 28 mmol/L (21-32) Anion Gap 12 (6-14) Blood Urea Nitrogen 29 mg/dL (7-20) Creatinine 1.5 mg/dL (0.6-1.0) Estimated GFR (Cockcroft-Gault) 36.1 BUN/Creatinine Ratio 19 (6-20) Glucose Level 131 mg/dL (70-99) Lactic Acid Level 3.2 mmol/L (0.4-2.0) 1.8 mmol/L (0.4-2.0) Calcium Level 8.8 mg/dL (8.5-10.1) Magnesium Level 1.5 mg/dL (1.8-2.4) Total Bilirubin 1.9 mg/dL (0.2-1.0) Aspartate Amino Transf (AST/SGOT) 23 U/L (15-37) Alanine Aminotransferase (ALT/SGPT) 23 U/L (14-59) Alkaline Phosphatase 26 U/L (46-116) Creatine Kinase 350 U/L (26-192) Troponin I Quantitative < 0.017 ng/mL (0.000-0.055) DX-Byy-C-Type Natriuretic Peptide 369 pg/mL (0-124) Total Protein 7.4 g/dL (6.4-8.2) Albumin 3.2 g/dL (3.4-5.0) Albumin/Globulin Ratio 0.8 (1.0-1.7) Lipase 61 U/L (73-393) Influenza Type A Antigen Negative (NEGATIVE) Influenza Type B Antigen Negative (NEGATIVE) Test 06/09/17 04:30 White Blood Count 13.9 x10^3/uL (4.0-11.0) Red Blood Count 4.19 x10^6/uL (3.50-5.40) Hemoglobin 12.8 g/dL (12.0-15.5) Hematocrit 37.4 % (36.0-47.0) Mean Corpuscular Volume 89 fL (79-100) Mean Corpuscular Hemoglobin 31 pg (25-35) Mean Corpuscular Hemoglobin Concent 34 g/dL (31-37) Red Cell Distribution Width 13.6 % (11.5-14.5) Platelet Count 197 x10^3/uL (140-400) Neutrophils (%) (Auto) 89 % (31-73) Lymphocytes (%) (Auto) 2 % (24-48) Monocytes (%) (Auto) 4 % (0-9) Eosinophils (%) (Auto) 5 % (0-3) Basophils (%) (Auto) 0 % (0-3) Neutrophils # (Auto) 12.4 x10^3uL (1.8-7.7) Lymphocytes # (Auto) 0.3 x10^3/uL (1.0-4.8) Monocytes # (Auto) 0.5 x10^3/uL (0.0-1.1) Eosinophils # (Auto) 0.6 x10^3/uL (0.0-0.7) Basophils # (Auto) 0.0 x10^3/uL (0.0-0.2) Sodium Level 135 mmol/L (136-145) Potassium Level 3.2 mmol/L (3.5-5.1) Chloride Level 99 mmol/L (98-107) Carbon Dioxide Level 27 mmol/L (21-32) Anion Gap 9 (6-14) Blood Urea Nitrogen 13 mg/dL (7-20) Creatinine 0.8 mg/dL (0.6-1.0) Estimated GFR (Cockcroft-Gault) 74.5 Glucose Level 99 mg/dL (70-99) Calcium Level 7.8 mg/dL (8.5-10.1) Laboratory Tests Test 06/08/17 10:40 06/09/17 04:30 Lactic Acid Level 1.8 mmol/L (0.4-2.0) White Blood Count 13.9 x10^3/uL (4.0-11.0) Red Blood Count 4.19 x10^6/uL (3.50-5.40) Hemoglobin 12.8 g/dL (12.0-15.5) Hematocrit 37.4 % (36.0-47.0) Mean Corpuscular Volume 89 fL (79-100) Mean Corpuscular Hemoglobin 31 pg (25-35) Mean Corpuscular Hemoglobin Concent 34 g/dL (31-37) Red Cell Distribution Width 13.6 % (11.5-14.5) Platelet Count 197 x10^3/uL (140-400) Neutrophils (%) (Auto) 89 % (31-73) Lymphocytes (%) (Auto) 2 % (24-48) Monocytes (%) (Auto) 4 % (0-9) Eosinophils (%) (Auto) 5 % (0-3) Basophils (%) (Auto) 0 % (0-3) Neutrophils # (Auto) 12.4 x10^3uL (1.8-7.7) Lymphocytes # (Auto) 0.3 x10^3/uL (1.0-4.8) Monocytes # (Auto) 0.5 x10^3/uL (0.0-1.1) Eosinophils # (Auto) 0.6 x10^3/uL (0.0-0.7) Basophils # (Auto) 0.0 x10^3/uL (0.0-0.2) Sodium Level 135 mmol/L (136-145) Potassium Level 3.2 mmol/L (3.5-5.1) Chloride Level 99 mmol/L (98-107) Carbon Dioxide Level 27 mmol/L (21-32) Anion Gap 9 (6-14) Blood Urea Nitrogen 13 mg/dL (7-20) Creatinine 0.8 mg/dL (0.6-1.0) Estimated GFR (Cockcroft-Gault) 74.5 Glucose Level 99 mg/dL (70-99) Calcium Level 7.8 mg/dL (8.5-10.1) Microbiology 06/08/17 Gram Stain - Final, Complete Medications Current Medications Ondansetron HCl (Zofran) 8 mg 1X ONCE IV Last administered on 06/08/17 08:52 ; Start 06/08/17 at 08:30; Stop 06/08/17 at 08:31; Status DC Fentanyl Citrate (Fentanyl 2ml Vial) 75 mcg 1X ONCE IV Last administered on 08:53; Start 06/08/17 at 08:30; Stop 06/08/17 at 08:31; Status DC Sodium Chloride 1,000 ml @ 1,000 mls/hr 1X ONCE IV Last administered on 06/08 08:50; Start 06/08/17 at 08:30; Stop 06/08/17 at 09:29; Status DC Ceftriaxone Sodium 2 gm/ Dextrose 100 ml @ 200 mls/hr Q24H IV ; Start at 09:15; Status UNV Ceftriaxone Sodium (Rocephin) 2 gm 1X ONCE IVP Last administered on 09:38; Start 06/08/17 at 09:30; Stop 06/08/17 at 19:41; Status DC Sodium Chloride 1,000 ml @ 1,000 mls/hr 1X ONCE IV Last administered on 06/08 09:37; Start 06/08/17 at 09:30; Stop 06/08/17 at 10:29; Status DC Acetaminophen (Tylenol) 1,000 mg 1X ONCE PO Last administered on 06/08/17 09 :38; Start 06/08/17 at 09:30; Stop 06/08/17 at 09:31; Status DC Ceftriaxone Sodium (Rocephin) 2 gm Q24H IVP ; Start 06/09/17 at 10:00; Stop at 10:00; Status DC Magnesium Oxide (Magnesium Oxide) 800 mg DAILY PO Last administered on 07:43; Start 06/08/17 at 10:00 Iohexol (Omnipaque 300 Mg/ml) 60 ml 1X ONCE IV Last administered on 10:18; Start 06/08/17 at 09:45; Stop 06/08/17 at 09:46; Status DC Info (Do NOT chart on this entry -- for MONITORING) 1 each PRN DAILY PRN MC SEE COMMENTS; Start 06/08/17 at 09:45; Stop 06/10/17 at 09:44 Promethazine HCl 12.5 mg/Sodium Chloride 50.5 ml @ 101 mls/hr 1X ONCE IV Last administered on 06/08/17 10:58; Start 06/08/17 at 10:00; Stop 06/08/17 at 10:29; Status DC Ondansetron HCl (Zofran) 4 mg PRN Q8HRS PRN IV NAUSEA/VOMITING Last administered on 06/08/17 20:08; Start 06/08/17 at 10:15; Stop 06/09/17 at 10 :14 Fentanyl Citrate (Fentanyl 2ml Vial) 50 mcg PRN Q2HR PRN IV PAIN Last administered on 06/09/17 00:44; Start 06/08/17 at 10:15; Stop 06/09/17 at 10 :14 Sodium Chloride 1,000 ml @ 100 mls/hr Q10H IV Last administered on 06/08/17 21:32; Start 06/08/17 at 10:30; Stop 06/09/17 at 10:29 Acetaminophen (Tylenol) 650 mg PRN Q4HRS PRN PO FEVER Last administered on 07:36; Start 06/08/17 at 10:15; Stop 06/09/17 at 10:14 Magnesium Sulfate/ Dextrose 50 ml @ 25 mls/hr 1X ONCE IV ; Start 06/08/17 at 13:30; Stop 06/08/17 at 13:30; Status DC Albuterol/ Ipratropium (Duoneb) 3 ml RTQID NEB Last administered on 06/09/17 07:29; Start 06/08/17 at 13:30 Fluoxetine HCl (PROzac) 20 mg [id number] PO Last administered on 06/09/17 07: 43; Start 06/08/17 at 15:00 Piperacillin Sod/ Tazobactam Sod 3.375 gm/Dextrose 50 ml @ 100 mls/hr Q6HRS IV ; Start 06/09/17 at 00:00; Status UNV Piperacillin Sod/ Tazobactam Sod (Zosyn) 3.375 gm Q6HRS IVP Last administered on 06/09/17 06:13; Start 06/09/17 at 00:00 Active Scripts Active Reported Prozac (Fluoxetine Hcl) 20 Mg Capsule 1 Cap PO [id number] Hydrochlorothiazide Capsule (Hydrochlorothiazide) 12.5 Mg Capsule 1 Cap PO DAILY Lisinopril 20 Mg Tablet 1 Tab PO DAILY Vitals/I & O Vital Sign - Last 24 Hours 06/08/17 06/08/17 06/08/17 06/08/17 09:50 10:50 11:25 11:47 Temp 99.2 99.2 Pulse 96 92 90 92 Resp 20 16 18 18 B/P (MAP) 108/58 (75) 100/53 (69) 99/57 (71) 98/57 (71) Pulse Ox 97 98 96 97 O2 Delivery Nasal Cannula Nasal Cannula Nasal Cannula Nasal Cannula O2 Flow Rate 2.0 2.0 2.0 2.0 06/08/17 06/08/17 06/08/17 06/08/17 12:00 15:00 15:00 16:00 Temp 99.5 97.9 99.5 97.9 Pulse 88 88 Resp 20 16 B/P (MAP) 95/48 (64) 99/56 (70) 100/48 (65) 104/61 (75) Pulse Ox 94 96 O2 Delivery Nasal Cannula Nasal Cannula O2 Flow Rate 2.0 2.0 06/08/17 06/08/17 06/08/17 06/08/17 17:03 19:00 19:14 20:00 Temp 99.5 99.5 Pulse 109 Resp 20 B/P (MAP) 101/52 (68) Pulse Ox 96 95 96 O2 Delivery Nasal Cannula Nasal Cannula Nasal Cannula O2 Flow Rate 2.0 2.0 2.0 06/08/17 06/08/17 06/08/17 06/09/17 20:09 20:39 23:00 00:44 Temp 101.3 101.3 Pulse 85 Resp 20 20 20 20 B/P (MAP) 110/62 (78) Pulse Ox 97 O2 Delivery Nasal Cannula Nasal Cannula Room Air Room Air 06/09/17 06/09/17 06/09/17 03:12 07:00 07:30 Temp 101.7 99.3 101.7 99.3 Pulse 69 76 Resp 20 20 B/P (MAP) 92/56 (68) 101/57 (72) Pulse Ox 93 99 94 O2 Delivery Room Air Room Air Nasal Cannula O2 Flow Rate 2.0 Intake and Output 06/08/17 06/08/17 06/09/17 15:00 23:00 07:00 Intake Total 2050.5 ml Output Total 600 ml 900 ml Balance 2050.5 ml -600 ml -900 ml JHON JUAREZ MD Jun 09, 2017 09:24
[2017-06-09] MEDS ORDERED: cefTRIAXone IV Push 2 GM VIAL. IVP SCH (10:00)
[2017-06-09 11:00] VITALS: BP 99/53
--- NOTE | 2017-06-09 11:18 | PDOC ---
Infectious Disease Note Subjective Subjective Feeling alot better Hungry Less abdominal pain, hurts mostly w/ cough Fever Tmax 101.7 ROS ROS GEN: Denies chills, sweats CV: Denies chest pain RESP: Denies shortness of air GI: Denies n/v/d Vital Sign Vital Signs Vital Signs Date Time Temp Pulse Resp B/P (MAP) Pulse Ox O2 Delivery O2 Flow Rate FiO2 06/09/17 07:30 94 Nasal Cannula 2.0 06/09/17 07:00 99.3 76 20 101/57 (72) 99.3 Physical Exam PHYSICAL EXAM GENERAL: Sitting on side of bed, relaxed appearance, eating eggs NECK: Supple. LUNGS: Clear to auscultation. Nonlabored. HEART: Normal S1 and S2. ABDOMEN: Obese. Bowel sounds active. Soft, NT A small wound with mild erythema noted, right lower quadrant. EXTREMITIES: No edema or cyanosis. SKIN: Without rash. NEUROLOGICAL: Alert and oriented x 3. Moves all extremities. Labs Lab Laboratory Tests Test 06/09/17 04:30 White Blood Count 13.9 x10^3/uL (4.0-11.0) Red Blood Count 4.19 x10^6/uL (3.50-5.40) Hemoglobin 12.8 g/dL (12.0-15.5) Hematocrit 37.4 % (36.0-47.0) Mean Corpuscular Volume 89 fL (79-100) Mean Corpuscular Hemoglobin 31 pg (25-35) Mean Corpuscular Hemoglobin Concent 34 g/dL (31-37) Red Cell Distribution Width 13.6 % (11.5-14.5) Platelet Count 197 x10^3/uL (140-400) Neutrophils (%) (Auto) 89 % (31-73) Lymphocytes (%) (Auto) 2 % (24-48) Monocytes (%) (Auto) 4 % (0-9) Eosinophils (%) (Auto) 5 % (0-3) Basophils (%) (Auto) 0 % (0-3) Neutrophils # (Auto) 12.4 x10^3uL (1.8-7.7) Lymphocytes # (Auto) 0.3 x10^3/uL (1.0-4.8) Monocytes # (Auto) 0.5 x10^3/uL (0.0-1.1) Eosinophils # (Auto) 0.6 x10^3/uL (0.0-0.7) Basophils # (Auto) 0.0 x10^3/uL (0.0-0.2) Sodium Level 135 mmol/L (136-145) Potassium Level 3.2 mmol/L (3.5-5.1) Chloride Level 99 mmol/L (98-107) Carbon Dioxide Level 27 mmol/L (21-32) Anion Gap 9 (6-14) Blood Urea Nitrogen 13 mg/dL (7-20) Creatinine 0.8 mg/dL (0.6-1.0) Estimated GFR (Cockcroft-Gault) 74.5 Glucose Level 99 mg/dL (70-99) Calcium Level 7.8 mg/dL (8.5-10.1) Micro BLOOD CULTURE Preliminary NO GROWTH AFTER 1 DAY GRAM STAIN Final WBCS NONE SEEN GRAM POSITIVE COCCI FEW Objective Assessment Sepsis w/ lactic acidosis, POA Abdominal pain, ? UTI - improved Fever Leukocytosis - improved Hypoxia Abdominal wall abscess - GPC Plan Plan of Care Zosyn Await GPC ID will add doxycycline US pending f/u cultures SUSY VALENTIN APRN Jun 09, 2017 11:18 RODO MONSIVAIS MD Jun 09, 2017 14:52
--- NOTE | 2017-06-09 14:28 | RAD ---
Ultrasound abdomen Limited 06/08/2017. Clinical indication: Nodule in the gallbladder fundus, indeterminate. Comparison: CT abdomen and pelvis 06/08/2017. Findings: Multiple real time ultrasound images were obtained of the abdomen 06/08/2017 and repeat images on 06/09/2017 at no additional charge to the patient. Gallbladder is normal in size. There is mild layering sludge. No cholelithiasis. Keisha noted nodule in the gallbladder fundus is not identified by ultrasound. No gallbladder wall thickening or pericholecystic fluid. Visualized pancreas and body unremarkable. Visualized abdominal aorta unremarkable. Liver is homogeneous in echotexture without suspicious focal mass or fluid collection. No intra or extrahepatic bile or ductal dilatation. Common bile duct measures 3 mm. Right kidney measures 10.6 cm without collecting system dilatation. Impression: 1. Nodularity of the gallbladder fundus on recent CT is not confirmed by ultrasound, though evaluation is somewhat limited due to body habitus. Follow-up MRI or CT abdomen and 3 months is recommended as findings are still indeterminant. 2. Mild layering gallbladder sludge without sonographic evidence of acute cholecystitis.
[2017-06-09 15:00] VITALS: BP 93/56
[2017-06-09] MEDS ORDERED: ONDANSETRON PF 4 MG/2 ML VIAL. IV PRN (17:15)
[2017-06-09] MEDS ORDERED: MORPHINE SULFATE 4 MG/ML DISP.SYRIN. IV PRN (17:15)
[2017-06-09] MEDS ORDERED: oxyCODONE/APAP 5/325 1 TAB TABLET PO PRN (17:15)
[2017-06-09] MEDS: DOXYCYCLINE HYCLATE 100 MG TABLET PO SCH ×2 (17:24→23:34)
[2017-06-09 19:00] VITALS: BP 96/56
[2017-06-09 22:51] VITALS: BP 99/57
[2017-06-10 03:00] VITALS: BP 94/60
[2017-06-10] MEDS: PIPERACILLIN/TAZO IV Push 3.375 GM VIAL. IVP SCH ×4 (06:23→23:31)
[2017-06-10 07:00] VITALS: BP 106/63
[2017-06-10] MEDS: IPRATRPIUM/ALBUTEROL 0.5/2.5MG 3 ML NEBU. NEB SCH ×4 (07:22→19:44)
[2017-06-10] MEDS: FLUoxetine HCL 20 MG CAPSULE PO SCH (07:57)
[2017-06-10] MEDS: POTASSIUM CHLORIDE 20 MEQ TABLET.ER. PO SCH (07:57)
[2017-06-10] MEDS: MAGNESIUM OXIDE 400 MG TABLET PO SCH (09:19)
[2017-06-10] MEDS: DOXYCYCLINE HYCLATE 100 MG TABLET PO SCH ×2 (09:19→20:24)
[2017-06-10 11:00] VITALS: BP 107/63
[2017-06-10] MEDS: ALPRAZolam 0.25 MG TABLET PO PRN ×2 (12:20→20:24)
--- NOTE | 2017-06-10 12:52 | PDOC ---
PROGRESS NOTES Chief Complaint Chief Complaint acute hypoxia respiratory failure acute abdomen pain, sepsis UTI YAO Hypokalemia Hypocalcemia obesity,BMI 33 depression hypertension History of Present Illness History of Present Illness Patient receiving treatment for abdominal pain, YAO, ARF, and UTI which are all clinically improving. Imaging of RUQ demonstrated nodularity at the gallbladder fundus and a recommended CT follow up scan in 3 months outpatient. Blood cultures grew MRSA+ bacteremia for which patient is receiving IV abx. Patient requesting medication for sleep. Patient reporting continued hand numbness. Vitals Vitals Vital Signs Date Time Temp Pulse Resp B/P (MAP) Pulse Ox O2 Delivery O2 Flow Rate FiO2 06/10/17 11:00 97.7 65 20 107/63 (78) 96 Room Air 97.7 06/09/17 18:23 2.0 Physical Exam General: Alert, Cooperative, No acute distress Heart: Regular rate, No murmurs Lungs: Clear Abdomen: Normal bowel sounds, Soft, No tenderness, No masses Extremities: No clubbing, Other (hands swollen, edema to hand and feet, ) Skin: No breakdown Labs LABS Current Medications Medications (Trade) Dose Ordered Sig/Alex Route PRN Reason Start Time Stop Time Status Last Admin Dose Admin Ondansetron HCl (Zofran) 8 mg 1X ONCE IV 06/08/17 08:30 06/08/17 08:31 DC 06/08/17 08:52 Fentanyl Citrate (Fentanyl 2ml Vial) 75 mcg 1X ONCE IV 06/08/17 08:30 06/08/17 08:31 DC 06/08/17 08:53 Sodium Chloride 1,000 ml @ 1,000 mls/hr 1X ONCE IV 06/08/17 08:30 06/08/17 09:29 DC 06/08/17 08:50 Ceftriaxone Sodium 2 gm/ Dextrose 100 ml @ 200 mls/hr Q24H IV 06/08/17 09:15 UNV Ceftriaxone Sodium (Rocephin) 2 gm 1X ONCE IVP 06/08/17 09:30 06/08/17 19:41 DC 06/08/17 09:38 Sodium Chloride 1,000 ml @ 1,000 mls/hr 1X ONCE IV 06/08/17 09:30 06/08/17 10:29 DC 06/08/17 09:37 Acetaminophen (Tylenol) 1,000 mg 1X ONCE PO 06/08/17 09:30 06/08/17 09:31 DC 06/08/17 09:38 Ceftriaxone Sodium (Rocephin) 2 gm Q24H IVP 06/09/17 10:00 06/09/17 10:00 DC Magnesium Oxide (Magnesium Oxide) 800 mg DAILY PO 06/08/17 10:00 06/10/17 09:19 Iohexol (Omnipaque 300 Mg/ml) 60 ml 1X ONCE IV 06/08/17 09:45 06/08/17 09:46 DC 06/08/17 10:18 Info (Do NOT chart on this entry -- for MONITORING) 1 each PRN DAILY PRN MC SEE COMMENTS 06/08/17 09:45 06/10/17 09:44 DC Promethazine HCl 12.5 mg/Sodium Chloride 50.5 ml @ 101 mls/hr 1X ONCE IV 06/08/17 10:00 06/08/17 10:29 DC 06/08/17 10:58 Ondansetron HCl (Zofran) 4 mg PRN Q8HRS PRN IV NAUSEA/VOMITING 06/08/17 10:15 06/09/17 10:14 DC 06/08/17 20:08 Fentanyl Citrate (Fentanyl 2ml Vial) 50 mcg PRN Q2HR PRN IV PAIN 06/08/17 10:15 06/09/17 10:14 DC 06/09/17 00:44 Sodium Chloride 1,000 ml @ 100 mls/hr Q10H IV 06/08/17 10:30 06/09/17 10:29 DC 06/08/17 21:32 Acetaminophen (Tylenol) 650 mg PRN Q4HRS PRN PO FEVER 06/08/17 10:15 06/09/17 10:14 DC 06/09/17 07:36 Magnesium Sulfate/ Dextrose 50 ml @ 25 mls/hr 1X ONCE IV 06/08/17 13:30 06/08/17 13:30 DC Albuterol/ Ipratropium (Duoneb) 3 ml RTQID NEB 06/08/17 13:30 06/10/17 07:22 Fluoxetine HCl (PROzac) 20 mg DAILYWBKFT PO 06/08/17 15:00 06/10/17 07:57 Piperacillin Sod/ Tazobactam Sod 3.375 gm/Dextrose 50 ml @ 100 mls/hr Q6HRS IV 06/09/17 00:00 UNV Piperacillin Sod/ Tazobactam Sod (Zosyn) 3.375 gm Q6HRS IVP 06/09/17 00:00 06/10/17 11:38 Potassium Chloride (Klor-Con) 20 meq DAILYWBKFT PO 06/10/17 08:00 06/10/17 07:57 Potassium Chloride (Klor-Con) 40 meq 1X ONCE PO 06/09/17 09:15 06/09/17 09:19 DC 06/09/17 13:00 Doxycycline Hyclate (Vibra-Tab) 100 mg BID PO 06/09/17 15:30 06/10/17 09:19 Ondansetron HCl (Zofran) 4 mg PRN Q6HRS PRN IV NAUSEA/VOMITING 06/09/17 17:15 06/09/17 17:23 Morphine Sulfate 4 mg PRN Q4HRS PRN IV PAIN 06/09/17 17:15 06/09/17 18:23 Oxycodone/ Acetaminophen (Percocet 5/325) 1 tab PRN Q4HRS PRN PO PAIN 06/09/17 17:15 06/09/17 17:23 Alprazolam (Xanax) 0.25 mg PRN Q6HRS PRN PO ANXIETY / AGITATION 06/10/17 12:15 06/10/17 12:20 Zolpidem Tartrate (Ambien) 5 mg PRN QHS PRN PO INSOMNIA 06/10/17 12:15 Review of Systems Review of Systems Patient reports anxiety and bilateral 3rd digit hand numbness and tingling Patient reports mild abdominal pain Patient reports difficulty sleeping Assessment and Plan Assessmemt and Plan Problems Medical Problems: (1) Abscess Status: Acute (2) Hypomagnesemia Status: Acute (3) Lactic acid acidosis Status: Acute (4) Sepsis Status: Acute (5) UTI (urinary tract infection) Status: Acute Assessment: acute hypoxia respiratory failure acute abdomen pain, sepsis UTI YAO Hypokalemia Hypocalcemia obesity,BMI 33 depression hypertension Plan: Recheck labs IV abx Follow up blood cultures Start ambien qHS for insomnia Continue home medications Consult neurology PT/OT Replace calcium and potassium Appreciate subspecialist input Problems: Comment Review of Relevant I have reviewed the following items rambo (where applicable) has been applied. Labs Laboratory Tests Test 06/09/17 04:30 White Blood Count 13.9 x10^3/uL (4.0-11.0) Red Blood Count 4.19 x10^6/uL (3.50-5.40) Hemoglobin 12.8 g/dL (12.0-15.5) Hematocrit 37.4 % (36.0-47.0) Mean Corpuscular Volume 89 fL (79-100) Mean Corpuscular Hemoglobin 31 pg (25-35) Mean Corpuscular Hemoglobin Concent 34 g/dL (31-37) Red Cell Distribution Width 13.6 % (11.5-14.5) Platelet Count 197 x10^3/uL (140-400) Neutrophils (%) (Auto) 89 % (31-73) Lymphocytes (%) (Auto) 2 % (24-48) Monocytes (%) (Auto) 4 % (0-9) Eosinophils (%) (Auto) 5 % (0-3) Basophils (%) (Auto) 0 % (0-3) Neutrophils # (Auto) 12.4 x10^3uL (1.8-7.7) Lymphocytes # (Auto) 0.3 x10^3/uL (1.0-4.8) Monocytes # (Auto) 0.5 x10^3/uL (0.0-1.1) Eosinophils # (Auto) 0.6 x10^3/uL (0.0-0.7) Basophils # (Auto) 0.0 x10^3/uL (0.0-0.2) Sodium Level 135 mmol/L (136-145) Potassium Level 3.2 mmol/L (3.5-5.1) Chloride Level 99 mmol/L (98-107) Carbon Dioxide Level 27 mmol/L (21-32) Anion Gap 9 (6-14) Blood Urea Nitrogen 13 mg/dL (7-20) Creatinine 0.8 mg/dL (0.6-1.0) Estimated GFR (Cockcroft-Gault) 74.5 Glucose Level 99 mg/dL (70-99) Calcium Level 7.8 mg/dL (8.5-10.1) Microbiology 06/08/17 Blood Culture - Preliminary, Resulted NO GROWTH AFTER 2 DAYS 06/08/17 Gram Stain - Final, Complete Medications Current Medications Ondansetron HCl (Zofran) 8 mg 1X ONCE IV Last administered on 06/08/17 08:52 ; Start 06/08/17 at 08:30; Stop 06/08/17 at 08:31; Status DC Fentanyl Citrate (Fentanyl 2ml Vial) 75 mcg 1X ONCE IV Last administered on 08:53; Start 06/08/17 at 08:30; Stop 06/08/17 at 08:31; Status DC Sodium Chloride 1,000 ml @ 1,000 mls/hr 1X ONCE IV Last administered on 06/08 08:50; Start 06/08/17 at 08:30; Stop 06/08/17 at 09:29; Status DC Ceftriaxone Sodium 2 gm/ Dextrose 100 ml @ 200 mls/hr Q24H IV ; Start at 09:15; Status UNV Ceftriaxone Sodium (Rocephin) 2 gm 1X ONCE IVP Last administered on 09:38; Start 06/08/17 at 09:30; Stop 06/08/17 at 19:41; Status DC Sodium Chloride 1,000 ml @ 1,000 mls/hr 1X ONCE IV Last administered on 06/08 09:37; Start 06/08/17 at 09:30; Stop 06/08/17 at 10:29; Status DC Acetaminophen (Tylenol) 1,000 mg 1X ONCE PO Last administered on 06/08/17 09 :38; Start 06/08/17 at 09:30; Stop 06/08/17 at 09:31; Status DC Ceftriaxone Sodium (Rocephin) 2 gm Q24H IVP ; Start 06/09/17 at 10:00; Stop at 10:00; Status DC Magnesium Oxide (Magnesium Oxide) 800 mg DAILY PO Last administered on 09:19; Start 06/08/17 at 10:00 Iohexol (Omnipaque 300 Mg/ml) 60 ml 1X ONCE IV Last administered on 10:18; Start 06/08/17 at 09:45; Stop 06/08/17 at 09:46; Status DC Info (Do NOT chart on this entry -- for MONITORING) 1 each PRN DAILY PRN MC SEE COMMENTS; Start 06/08/17 at 09:45; Stop 06/10/17 at 09:44; Status DC Promethazine HCl 12.5 mg/Sodium Chloride 50.5 ml @ 101 mls/hr 1X ONCE IV Last administered on 06/08/17 10:58; Start 06/08/17 at 10:00; Stop 06/08/17 at 10:29; Status DC Ondansetron HCl (Zofran) 4 mg PRN Q8HRS PRN IV NAUSEA/VOMITING Last administered on 06/08/17 20:08; Start 06/08/17 at 10:15; Stop 06/09/17 at 10 :14; Status DC Fentanyl Citrate (Fentanyl 2ml Vial) 50 mcg PRN Q2HR PRN IV PAIN Last administered on 06/09/17 00:44; Start 06/08/17 at 10:15; Stop 06/09/17 at 10 :14; Status DC Sodium Chloride 1,000 ml @ 100 mls/hr Q10H IV Last administered on 06/08/17 21:32; Start 06/08/17 at 10:30; Stop 06/09/17 at 10:29; Status DC Acetaminophen (Tylenol) 650 mg PRN Q4HRS PRN PO FEVER Last administered on 07:36; Start 06/08/17 at 10:15; Stop 06/09/17 at 10:14; Status DC Magnesium Sulfate/ Dextrose 50 ml @ 25 mls/hr 1X ONCE IV ; Start 06/08/17 at 13:30; Stop 06/08/17 at 13:30; Status DC Albuterol/ Ipratropium (Duoneb) 3 ml RTQID NEB Last administered on 06/10/17 07:22; Start 06/08/17 at 13:30 Fluoxetine HCl (PROzac) 20 mg DAILYWBKFT PO Last administered on 06/10/17 07: 57; Start 06/08/17 at 15:00 Piperacillin Sod/ Tazobactam Sod 3.375 gm/Dextrose 50 ml @ 100 mls/hr Q6HRS IV ; Start 06/09/17 at 00:00; Status UNV Piperacillin Sod/ Tazobactam Sod (Zosyn) 3.375 gm Q6HRS IVP Last administered on 06/10/17 11:38; Start 06/09/17 at 00:00 Potassium Chloride (Klor-Con) 20 meq DAILYWBKFT PO Last administered on 07:57; Start 06/10/17 at 08:00 Potassium Chloride (Klor-Con) 40 meq 1X ONCE PO Last administered on 13:00; Start 06/09/17 at 09:15; Stop 06/09/17 at 09:19; Status DC Doxycycline Hyclate (Vibra-Tab) 100 mg BID PO Last administered on 06/10/17 09:19; Start 06/09/17 at 15:30 Ondansetron HCl (Zofran) 4 mg PRN Q6HRS PRN IV NAUSEA/VOMITING Last administered on 06/09/17 17:23; Start 06/09/17 at 17:15 Morphine Sulfate 4 mg PRN Q4HRS PRN IV PAIN Last administered on 06/09/17 18: 23; Start 06/09/17 at 17:15 Oxycodone/ Acetaminophen (Percocet 5/325) 1 tab PRN Q4HRS PRN PO PAIN Last administered on 06/09/17 17:23; Start 06/09/17 at 17:15 Alprazolam (Xanax) 0.25 mg PRN Q6HRS PRN PO ANXIETY / AGITATION Last administered on 06/10/17 12:20; Start 06/10/17 at 12:15 Zolpidem Tartrate (Ambien) 5 mg PRN QHS PRN PO INSOMNIA; Start 06/10/17 at 12: 15 Active Scripts Active Reported Prozac (Fluoxetine Hcl) 20 Mg Capsule 1 Cap PO DAILYWBKFT Hydrochlorothiazide Capsule (Hydrochlorothiazide) 12.5 Mg Capsule 1 Cap PO DAILY Lisinopril 20 Mg Tablet 1 Tab PO DAILY Vitals/I & O Vital Sign - Last 24 Hours 06/09/17 06/09/17 06/09/17 06/09/17 15:00 16:09 17:23 18:23 Temp 97.7 97.7 Pulse 77 Resp 16 B/P (MAP) 93/56 (68) Pulse Ox 96 97 97 97 O2 Delivery Room Air Room Air O2 Flow Rate 2.0 2.0 06/09/17 06/09/17 06/09/17 06/09/17 18:23 18:53 19:00 21:22 Temp 98.1 98.1 Pulse 61 Resp 20 18 B/P (MAP) 96/56 (69) Pulse Ox 97 97 95 96 O2 Delivery Room Air Room Air O2 Flow Rate 2.0 06/09/17 06/10/17 06/10/17 06/10/17 22:51 03:00 07:00 07:22 Temp 97.7 97.7 98.1 97.7 97.7 98.1 Pulse 71 64 77 Resp 18 18 20 B/P (MAP) 99/57 (71) 94/60 (71) 106/63 (77) Pulse Ox 99 97 96 98 O2 Delivery Room Air Room Air Room Air Room Air 06/10/17 06/10/17 08:00 11:00 Temp 97.7 97.7 Pulse 65 Resp 20 B/P (MAP) 107/63 (78) Pulse Ox 96 O2 Delivery Room Air Room Air Intake and Output 06/09/17 06/09/17 06/10/17 14:59 22:59 06:59 Intake Total 400 ml 450 ml 0 ml Output Total 900 ml 600 ml Balance -500 ml -150 ml 0 ml GARRET MELGAR III DO Jun 10, 2017 12:52
--- NOTE | 2017-06-10 13:16 | PDOC ---
Infectious Disease Note Subjective Subjective Feeling alot better tolerating meals well Less abdominal pain, hurts mostly w/ cough no f/c/n/v/sob ROS ROS GEN: Denies fevers, chills, sweats HEENT: Denies blurred vision, sore throat CV: Denies chest pain RESP: Denies shortness of air, cough GI: Denies n/v/d NEURO: Denies confusion, dizziness MSK: Denies weakness, joint pain/swelling Vital Sign Vital Signs Vital Signs Date Time Temp Pulse Resp B/P (MAP) Pulse Ox O2 Delivery O2 Flow Rate FiO2 06/10/17 11:00 97.7 65 20 107/63 (78) 96 Room Air 97.7 06/09/17 18:23 2.0 Physical Exam PHYSICAL EXAM GENERAL: axox3 female in nad NECK: Supple. LUNGS: Clear to auscultation. Nonlabored. HEART: Normal S1 and S2. ABDOMEN: Obese. Bowel sounds active. Soft, NT A small wound with mild erythema noted, right lower quadrant. EXTREMITIES: No edema or cyanosis. SKIN: Without rash. NEUROLOGICAL: Alert and oriented x 3. Moves all extremities. Labs Lab US ABDOMEN Impression: 1. Nodularity of the gallbladder fundus on recent CT is not confirmed by ultrasound, though evaluation is somewhat limited due to body habitus. Follow-up MRI or CT abdomen and 3 months is recommended as findings are still indeterminant. 2. Mild layering gallbladder sludge without sonographic evidence of acute cholecystitis. Micro Wound swab abdo MRSA BC NGTD Objective Assessment Sepsis w/ lactic acidosis, POA Abdominal pain, ? UTI or GB nausea and vomiting, resolving ,GB nodule on CT and U/S Fever resolved Leukocytosis improving Hypoxia Abdominal wall abscess - MRSA Pyuria no urine c/s done Plan Plan of Care Zosyn cannot use zyvox due to concerns with ddi with ssris continue doxycycline f/u c/s RODO MONSIVAIS MD Jun 10, 2017 13:16
[2017-06-10 14:03] LABS: CALCIUM 7.6 mg/dL (8.5-10.1); MAGNESIUM 1.9 mg/dL (1.8-2.4)
[2017-06-10 15:00] VITALS: BP 92/52
--- NOTE | 2017-06-10 17:17 | PDOC2 ---
NEUROLOGY CONSULT Date of Admission Date of Admission DATE: 06/10/17 TIME: 17:08 Reason for Consult Reason for Consult: IMPRESSION: Bilateral middle and ring finger numbness. Abnormal pain. Nausea Vomiting. Leukocytosis. UTI Hypocalcemia. HTN RECOMMENDATIONS/PLAN: Neurontin 100 mg tid. Vit B1 100 mg daily. Treat medical diseases. Continue observation. GBS not likely so far, but continue observation. HISTORY OF THE PRESENT ILLNESS: 57-y-old female patient with above medical diseases developed symptoms of GI discomfort, nausea, vomiting and abdominal pain to come to the ER. She has leukocytosis and has been treated with antibiotics. She stated she has symptoms of numbness in her middle and ring fingers in both hands, but the rest fingers are not involved. Feet are not involved either. Past Medical History Cardiovascular: HTN Pulmonary: No pertinent hx GI: No pertinent hx Heme/Onc: No pertinent hx Hepatobiliary: No pertinent hx Psych: Depression Musculoskeletal: low back pain ENT: No pertinent hx Renal/: No pertinent hx Family History Non contributory. Social History Smoke: No ALCOHOL: social (2 twice a week) Drugs: None ALLERGY: Reviewed. MEDICATIONS: Refer to MAR REVIEW OF SYSTEMS: Constitutional: No malnutrition, weight loss, cachexia. Head: No traumatic brain or head injury. Skin: No edema, or rash. Ear: No infection. Eyes: No vision loss or color blindness. Nose: No bleeding or purulent discharges. Hearing: No hearing decrease. Neck: No injury. Breast: No history of cancer, masses,or discharges. Cardiac: HTN. Pulmonary: No COPD. GI: No GI ulcer, GI bleeding. Urinary/genital: UTI. Endocrinologic: Obesity. Skeletomuscular: No muscular atrophy, deformity. Neurological: see HP. Psychiatric: Denies drug use/abuse. Otherwise, not [id number] review of systems. PHYSICAL EXAMINATION: General appearance is in subacute distress. HEENT: Normocephalic and nontraumatic. Eyes, nose, ears, and throat are unremarkable. Neck is supple. No lymphadenopathy. No bruits are heard over the carotid artery. No crepitus. Cardiovascular: S1, S2, regular rate and rhythm. Pulmonary: Clear to auscultation bilaterally. Abdomen: Bowel sounds are positive. Extremities: No rash, lesions, or edema. No restriction of range of motion NEUROLOGICAL EXAMINATION: Alert Oriented to time, place and person. PERRL. EOMI. CN: no focal findings. Muscle tone: within normal. Muscle strength: 5 DTR: 2- Plantar reflex: Flexor response bilaterally Gait: not examined in bed. Sensory exam: no abnormal findings. No cerebellar signs elicited. F-T-N test accurate. Current Medications Current Medications Current Medications Ondansetron HCl (Zofran) 8 mg 1X ONCE IV Last administered on 06/08/17 08:52 ; Start 06/08/17 at 08:30; Stop 06/08/17 at 08:31; Status DC Fentanyl Citrate (Fentanyl 2ml Vial) 75 mcg 1X ONCE IV Last administered on 08:53; Start 06/08/17 at 08:30; Stop 06/08/17 at 08:31; Status DC Sodium Chloride 1,000 ml @ 1,000 mls/hr 1X ONCE IV Last administered on 06/08 08:50; Start 06/08/17 at 08:30; Stop 06/08/17 at 09:29; Status DC Ceftriaxone Sodium 2 gm/ Dextrose 100 ml @ 200 mls/hr Q24H IV ; Start at 09:15; Status UNV Ceftriaxone Sodium (Rocephin) 2 gm 1X ONCE IVP Last administered on 09:38; Start 06/08/17 at 09:30; Stop 06/08/17 at 19:41; Status DC Sodium Chloride 1,000 ml @ 1,000 mls/hr 1X ONCE IV Last administered on 06/08 09:37; Start 06/08/17 at 09:30; Stop 06/08/17 at 10:29; Status DC Acetaminophen (Tylenol) 1,000 mg 1X ONCE PO Last administered on 06/08/17 09 :38; Start 06/08/17 at 09:30; Stop 06/08/17 at 09:31; Status DC Ceftriaxone Sodium (Rocephin) 2 gm Q24H IVP ; Start 06/09/17 at 10:00; Stop at 10:00; Status DC Magnesium Oxide (Magnesium Oxide) 800 mg DAILY PO Last administered on 09:19; Start 06/08/17 at 10:00 Iohexol (Omnipaque 300 Mg/ml) 60 ml 1X ONCE IV Last administered on 10:18; Start 06/08/17 at 09:45; Stop 06/08/17 at 09:46; Status DC Info (Do NOT chart on this entry -- for MONITORING) 1 each PRN DAILY PRN MC SEE COMMENTS; Start 06/08/17 at 09:45; Stop 06/10/17 at 09:44; Status DC Promethazine HCl 12.5 mg/Sodium Chloride 50.5 ml @ 101 mls/hr 1X ONCE IV Last administered on 06/08/17 10:58; Start 06/08/17 at 10:00; Stop 06/08/17 at 10:29; Status DC Ondansetron HCl (Zofran) 4 mg PRN Q8HRS PRN IV NAUSEA/VOMITING Last administered on 06/08/17 20:08; Start 06/08/17 at 10:15; Stop 06/09/17 at 10 :14; Status DC Fentanyl Citrate (Fentanyl 2ml Vial) 50 mcg PRN Q2HR PRN IV PAIN Last administered on 06/09/17 00:44; Start 06/08/17 at 10:15; Stop 06/09/17 at 10 :14; Status DC Sodium Chloride 1,000 ml @ 100 mls/hr Q10H IV Last administered on 06/08/17 21:32; Start 06/08/17 at 10:30; Stop 06/09/17 at 10:29; Status DC Acetaminophen (Tylenol) 650 mg PRN Q4HRS PRN PO FEVER Last administered on 07:36; Start 06/08/17 at 10:15; Stop 06/09/17 at 10:14; Status DC Magnesium Sulfate/ Dextrose 50 ml @ 25 mls/hr 1X ONCE IV ; Start 06/08/17 at 13:30; Stop 06/08/17 at 13:30; Status DC Albuterol/ Ipratropium (Duoneb) 3 ml RTQID NEB Last administered on 06/10/17 07:22; Start 06/08/17 at 13:30 Fluoxetine HCl (PROzac) 20 mg DAILYWBKFT PO Last administered on 06/10/17 07: 57; Start 06/08/17 at 15:00 Piperacillin Sod/ Tazobactam Sod 3.375 gm/Dextrose 50 ml @ 100 mls/hr Q6HRS IV ; Start 06/09/17 at 00:00; Status UNV Piperacillin Sod/ Tazobactam Sod (Zosyn) 3.375 gm Q6HRS IVP Last administered on 06/10/17 11:38; Start 06/09/17 at 00:00 Potassium Chloride (Klor-Con) 20 meq DAILYWBKFT PO Last administered on 07:57; Start 06/10/17 at 08:00 Potassium Chloride (Klor-Con) 40 meq 1X ONCE PO Last administered on 13:00; Start 06/09/17 at 09:15; Stop 06/09/17 at 09:19; Status DC Doxycycline Hyclate (Vibra-Tab) 100 mg BID PO Last administered on 06/10/17 09:19; Start 06/09/17 at 15:30 Ondansetron HCl (Zofran) 4 mg PRN Q6HRS PRN IV NAUSEA/VOMITING Last administered on 06/09/17 17:23; Start 06/09/17 at 17:15 Morphine Sulfate 4 mg PRN Q4HRS PRN IV PAIN Last administered on 06/09/17 18: 23; Start 06/09/17 at 17:15 Oxycodone/ Acetaminophen (Percocet 5/325) 1 tab PRN Q4HRS PRN PO PAIN Last administered on 06/09/17 17:23; Start 06/09/17 at 17:15 Alprazolam (Xanax) 0.25 mg PRN Q6HRS PRN PO ANXIETY / AGITATION Last administered on 06/10/17 12:20; Start 06/10/17 at 12:15 Zolpidem Tartrate (Ambien) 5 mg PRN QHS PRN PO INSOMNIA; Start 06/10/17 at 12: 15 Active Scripts Active Reported Prozac (Fluoxetine Hcl) 20 Mg Capsule 1 Cap PO DAILYWBKFT Hydrochlorothiazide Capsule (Hydrochlorothiazide) 12.5 Mg Capsule 1 Cap PO DAILY Lisinopril 20 Mg Tablet 1 Tab PO DAILY Allergies Allergies: Coded Allergies: No Known Drug Allergies (Unverified , 04/25/15) Vitals VITALS Vital Signs Date Time Temp Pulse Resp B/P (MAP) Pulse Ox O2 Delivery O2 Flow Rate FiO2 06/10/17 15:00 95.9 69 20 92/52 (65) 98 Room Air 95.9 06/09/17 18:23 2.0 Labs Labs Laboratory Tests Test 06/09/17 04:30 06/10/17 13:20 White Blood Count 13.9 x10^3/uL (4.0-11.0) Red Blood Count 4.19 x10^6/uL (3.50-5.40) Hemoglobin 12.8 g/dL (12.0-15.5) Hematocrit 37.4 % (36.0-47.0) Mean Corpuscular Volume 89 fL (79-100) Mean Corpuscular Hemoglobin 31 pg (25-35) Mean Corpuscular Hemoglobin Concent 34 g/dL (31-37) Red Cell Distribution Width 13.6 % (11.5-14.5) Platelet Count 197 x10^3/uL (140-400) Neutrophils (%) (Auto) 89 % (31-73) Lymphocytes (%) (Auto) 2 % (24-48) Monocytes (%) (Auto) 4 % (0-9) Eosinophils (%) (Auto) 5 % (0-3) Basophils (%) (Auto) 0 % (0-3) Neutrophils # (Auto) 12.4 x10^3uL (1.8-7.7) Lymphocytes # (Auto) 0.3 x10^3/uL (1.0-4.8) Monocytes # (Auto) 0.5 x10^3/uL (0.0-1.1) Eosinophils # (Auto) 0.6 x10^3/uL (0.0-0.7) Basophils # (Auto) 0.0 x10^3/uL (0.0-0.2) Sodium Level 135 mmol/L (136-145) Potassium Level 3.2 mmol/L (3.5-5.1) Chloride Level 99 mmol/L (98-107) Carbon Dioxide Level 27 mmol/L (21-32) Anion Gap 9 (6-14) Blood Urea Nitrogen 13 mg/dL (7-20) Creatinine 0.8 mg/dL (0.6-1.0) Estimated GFR (Cockcroft-Gault) 74.5 Glucose Level 99 mg/dL (70-99) Calcium Level 7.8 mg/dL (8.5-10.1) 7.6 mg/dL (8.5-10.1) Magnesium Level 1.9 mg/dL (1.8-2.4) Laboratory Tests Test 06/10/17 13:20 Calcium Level 7.6 mg/dL (8.5-10.1) Magnesium Level 1.9 mg/dL (1.8-2.4) RANDALL CARIAS MD Jun 10, 2017 17:17
[2017-06-10 19:00] VITALS: BP 103/63
[2017-06-10] MEDS: ZOLPIDEM 5 MG TABLET. PO PRN (20:24)
[2017-06-10] MEDS: THIAMINE 100 MG TABLET. PO SCH (20:24)
[2017-06-10] MEDS: GABAPENTIN 100 MG CAPSULE. PO SCH (20:25)
[2017-06-10 23:00] VITALS: BP 98/38
[2017-06-11 03:00] VITALS: BP 116/65
[2017-06-11 05:19] LABS: BASO # 0.1 x10^3/uL (0.0-0.2); BASO % 1 % (0-3); EOS % 14 % (0-3); HEMATOCRIT 34.5 % (36.0-47.0); HEMOGLOBIN 11.9 g/dL (12.0-15.5); LYMPH % 26 % (24-48); MEAN CORPUSCULAR HEMOGLOBIN 31 pg (25-35); MEAN CORPUSCULAR HGB CONC 35 g/dL (31-37); MEAN CORPUSCULAR VOLUME 89 fL (79-100); MONO % 13 % (0-9); NEUT % 46 % (31-73); PLATELET COUNT 258 x10^3/uL (140-400); RED BLOOD COUNT 3.86 x10^6/uL (3.50-5.40); RED CELL DISTRIBUTION WIDTH 13.7 % (11.5-14.5); WHITE BLOOD COUNT 7.5 x10^3/uL (4.0-11.0)
[2017-06-11] MEDS: PIPERACILLIN/TAZO IV Push 3.375 GM VIAL. IVP SCH ×4 (05:35→22:57)
[2017-06-11 05:51] LABS: ALBUMIN 2.3 g/dL (3.4-5.0); ALBUMIN/GLOBULIN RATIO 0.8 (1.0-1.7); CALCIUM 7.7 mg/dL (8.5-10.1); CREATININE 0.6 mg/dL (0.6-1.0); GFR 103.8; POTASSIUM 3.6 mmol/L (3.5-5.1); TOTAL BILIRUBIN 0.3 mg/dL (0.2-1.0); TOTAL PROTEIN 5.2 g/dL (6.4-8.2)
[2017-06-11 07:00] VITALS: BP 116/80
[2017-06-11] MEDS: IPRATRPIUM/ALBUTEROL 0.5/2.5MG 3 ML NEBU. NEB SCH ×4 (07:43→20:15)
[2017-06-11] MEDS: POTASSIUM CHLORIDE 20 MEQ TABLET.ER. PO SCH (08:00)
[2017-06-11] MEDS: FLUoxetine HCL 20 MG CAPSULE PO SCH (08:00)
[2017-06-11] MEDS: MAGNESIUM OXIDE 400 MG TABLET PO SCH (09:15)
[2017-06-11] MEDS: THIAMINE 100 MG TABLET. PO SCH (09:16)
[2017-06-11] MEDS: DOXYCYCLINE HYCLATE 100 MG TABLET PO SCH ×2 (09:16→21:07)
[2017-06-11] MEDS: GABAPENTIN 100 MG CAPSULE. PO SCH ×3 (09:16→21:07)
[2017-06-11] MEDS: ALPRAZolam 0.25 MG TABLET PO PRN ×3 (10:48→22:57)
[2017-06-11 10:50] VITALS: BP 137/76
--- NOTE | 2017-06-11 12:05 | PDOC ---
Infectious Disease Note Subjective Subjective Feeling alot better tolerating meals well no f/c/n/v/sob/diarrhea/abdo pain ROS ROS GEN: Denies fevers, chills, sweats HEENT: Denies blurred vision, sore throat CV: Denies chest pain RESP: Denies shortness of air, cough GI: Denies n/v/d NEURO: Denies confusion, dizziness MSK: Denies weakness, joint pain/swelling Vital Sign Vital Signs Vital Signs Date Time Temp Pulse Resp B/P (MAP) Pulse Ox O2 Delivery O2 Flow Rate FiO2 06/11/17 11:50 Room Air 06/11/17 10:50 97.9 76 20 137/76 (96) 97 97.9 Physical Exam PHYSICAL EXAM GENERAL: axox3 female in nad NECK: Supple. LUNGS: Clear to auscultation. Nonlabored. HEART: Normal S1 and S2. ABDOMEN: Obese. Bowel sounds active. Soft, NT A small wound with mild erythema noted, right lower quadrant.drying EXTREMITIES: No edema or cyanosis. SKIN: Without rash. NEUROLOGICAL: Alert and oriented x 3. Moves all extremities. Labs Lab Laboratory Tests Test 06/10/17 13:20 06/10/17 18:20 06/11/17 04:15 Calcium Level 7.6 mg/dL (8.5-10.1) 7.7 mg/dL (8.5-10.1) Magnesium Level 1.9 mg/dL (1.8-2.4) Vitamin B12 Level 1254 pg/mL (247-911) 25-Hydroxy Vitamin D Total 30.9 ng/mL (30-100) Thyroid Stimulating Hormone (TSH) 3.194 uIU/mL (0.358-3.74) White Blood Count 7.5 x10^3/uL (4.0-11.0) Red Blood Count 3.86 x10^6/uL (3.50-5.40) Hemoglobin 11.9 g/dL (12.0-15.5) Hematocrit 34.5 % (36.0-47.0) Mean Corpuscular Volume 89 fL (79-100) Mean Corpuscular Hemoglobin 31 pg (25-35) Mean Corpuscular Hemoglobin Concent 35 g/dL (31-37) Red Cell Distribution Width 13.7 % (11.5-14.5) Platelet Count 258 x10^3/uL (140-400) Neutrophils (%) (Auto) 46 % (31-73) Lymphocytes (%) (Auto) 26 % (24-48) Monocytes (%) (Auto) 13 % (0-9) Eosinophils (%) (Auto) 14 % (0-3) Basophils (%) (Auto) 1 % (0-3) Neutrophils # (Auto) 3.4 x10^3uL (1.8-7.7) Lymphocytes # (Auto) 2.0 x10^3/uL (1.0-4.8) Monocytes # (Auto) 1.0 x10^3/uL (0.0-1.1) Eosinophils # (Auto) 1.1 x10^3/uL (0.0-0.7) Basophils # (Auto) 0.1 x10^3/uL (0.0-0.2) Sodium Level 142 mmol/L (136-145) Potassium Level 3.6 mmol/L (3.5-5.1) Chloride Level 105 mmol/L (98-107) Carbon Dioxide Level 29 mmol/L (21-32) Anion Gap 8 (6-14) Blood Urea Nitrogen 8 mg/dL (7-20) Creatinine 0.6 mg/dL (0.6-1.0) Estimated GFR (Cockcroft-Gault) 103.8 BUN/Creatinine Ratio 13 (6-20) Glucose Level 88 mg/dL (70-99) Total Bilirubin 0.3 mg/dL (0.2-1.0) Aspartate Amino Transf (AST/SGOT) 35 U/L (15-37) Alanine Aminotransferase (ALT/SGPT) 53 U/L (14-59) Alkaline Phosphatase 25 U/L (46-116) Total Protein 5.2 g/dL (6.4-8.2) Albumin 2.3 g/dL (3.4-5.0) Albumin/Globulin Ratio 0.8 (1.0-1.7) Micro Wound swab abdo MRSA BC NGTD Objective Assessment Sepsis w/ lactic acidosis, POA Abdominal pain, ? UTI or GB nausea and vomiting, resolving ,GB nodule on CT and U/S Fever resolved Leukocytosis improving Hypoxia Abdominal wall abscess - MRSA Pyuria no urine c/s done Plan Plan of Care Continue doxycycline and Zosyn when ready for dc home can transition to po augmentin and doxycycline for 10 days Local care of abdo wound healing well OK to dc home from id standpoint will need to f/u with pcp RODO MONSIVAIS MD Jun 11, 2017 12:05
[2017-06-11 15:00] VITALS: BP 129/72
--- NOTE | 2017-06-11 15:55 | PDOC ---
PROGRESS NOTES Chief Complaint Chief Complaint acute hypoxia respiratory failure acute abdomen pain, sepsis MRSA BACTEREMIA UTI YAO Hypokalemia Hypocalcemia obesity,BMI 33 depression hypertension PLAN CRP D/C TOMORROW IF DOING WELL WITH AUGMENTIN, DOXY History of Present Illness History of Present Illness Patient receiving treatment for abdominal pain, Imaging of RUQ demonstrated nodularity at the gallbladder fundus and a recommended CT follow up scan in 3 months outpatient. Blood cultures grew MRSA+ bacteremia for which patient is receiving IV abx. Vitals Vitals Vital Signs Date Time Temp Pulse Resp B/P (MAP) Pulse Ox O2 Delivery O2 Flow Rate FiO2 06/11/17 15:46 Room Air 06/11/17 15:00 97.8 61 20 129/72 (91) 100 97.8 Physical Exam General: Alert, Oriented X3, Cooperative, No acute distress Heart: Regular rate, No murmurs Lungs: Clear Abdomen: Normal bowel sounds, Soft, No tenderness, No masses Extremities: No clubbing, No cyanosis, Other (hands swollen, edema to hand and feet, ) Skin: No breakdown Labs LABS Laboratory Tests Test 06/10/17 18:20 06/11/17 04:15 Vitamin B12 Level 1254 pg/mL (247-911) 25-Hydroxy Vitamin D Total 30.9 ng/mL (30-100) Thyroid Stimulating Hormone (TSH) 3.194 uIU/mL (0.358-3.74) White Blood Count 7.5 x10^3/uL (4.0-11.0) Red Blood Count 3.86 x10^6/uL (3.50-5.40) Hemoglobin 11.9 g/dL (12.0-15.5) Hematocrit 34.5 % (36.0-47.0) Mean Corpuscular Volume 89 fL (79-100) Mean Corpuscular Hemoglobin 31 pg (25-35) Mean Corpuscular Hemoglobin Concent 35 g/dL (31-37) Red Cell Distribution Width 13.7 % (11.5-14.5) Platelet Count 258 x10^3/uL (140-400) Neutrophils (%) (Auto) 46 % (31-73) Lymphocytes (%) (Auto) 26 % (24-48) Monocytes (%) (Auto) 13 % (0-9) Eosinophils (%) (Auto) 14 % (0-3) Basophils (%) (Auto) 1 % (0-3) Neutrophils # (Auto) 3.4 x10^3uL (1.8-7.7) Lymphocytes # (Auto) 2.0 x10^3/uL (1.0-4.8) Monocytes # (Auto) 1.0 x10^3/uL (0.0-1.1) Eosinophils # (Auto) 1.1 x10^3/uL (0.0-0.7) Basophils # (Auto) 0.1 x10^3/uL (0.0-0.2) Sodium Level 142 mmol/L (136-145) Potassium Level 3.6 mmol/L (3.5-5.1) Chloride Level 105 mmol/L (98-107) Carbon Dioxide Level 29 mmol/L (21-32) Anion Gap 8 (6-14) Blood Urea Nitrogen 8 mg/dL (7-20) Creatinine 0.6 mg/dL (0.6-1.0) Estimated GFR (Cockcroft-Gault) 103.8 BUN/Creatinine Ratio 13 (6-20) Glucose Level 88 mg/dL (70-99) Calcium Level 7.7 mg/dL (8.5-10.1) Total Bilirubin 0.3 mg/dL (0.2-1.0) Aspartate Amino Transf (AST/SGOT) 35 U/L (15-37) Alanine Aminotransferase (ALT/SGPT) 53 U/L (14-59) Alkaline Phosphatase 25 U/L (46-116) Total Protein 5.2 g/dL (6.4-8.2) Albumin 2.3 g/dL (3.4-5.0) Albumin/Globulin Ratio 0.8 (1.0-1.7) Assessment and Plan Assessmemt and Plan Problems Medical Problems: (1) Abscess Status: Acute (2) Hypomagnesemia Status: Acute (3) Lactic acid acidosis Status: Acute (4) Sepsis Status: Acute (5) UTI (urinary tract infection) Status: Acute Problems: Comment Review of Relevant I have reviewed the following items rambo (where applicable) has been applied. Labs Laboratory Tests Test 06/10/17 13:20 06/10/17 18:20 06/11/17 04:15 Calcium Level 7.6 mg/dL (8.5-10.1) 7.7 mg/dL (8.5-10.1) Magnesium Level 1.9 mg/dL (1.8-2.4) Vitamin B12 Level 1254 pg/mL (247-911) 25-Hydroxy Vitamin D Total 30.9 ng/mL (30-100) Thyroid Stimulating Hormone (TSH) 3.194 uIU/mL (0.358-3.74) White Blood Count 7.5 x10^3/uL (4.0-11.0) Red Blood Count 3.86 x10^6/uL (3.50-5.40) Hemoglobin 11.9 g/dL (12.0-15.5) Hematocrit 34.5 % (36.0-47.0) Mean Corpuscular Volume 89 fL (79-100) Mean Corpuscular Hemoglobin 31 pg (25-35) Mean Corpuscular Hemoglobin Concent 35 g/dL (31-37) Red Cell Distribution Width 13.7 % (11.5-14.5) Platelet Count 258 x10^3/uL (140-400) Neutrophils (%) (Auto) 46 % (31-73) Lymphocytes (%) (Auto) 26 % (24-48) Monocytes (%) (Auto) 13 % (0-9) Eosinophils (%) (Auto) 14 % (0-3) Basophils (%) (Auto) 1 % (0-3) Neutrophils # (Auto) 3.4 x10^3uL (1.8-7.7) Lymphocytes # (Auto) 2.0 x10^3/uL (1.0-4.8) Monocytes # (Auto) 1.0 x10^3/uL (0.0-1.1) Eosinophils # (Auto) 1.1 x10^3/uL (0.0-0.7) Basophils # (Auto) 0.1 x10^3/uL (0.0-0.2) Sodium Level 142 mmol/L (136-145) Potassium Level 3.6 mmol/L (3.5-5.1) Chloride Level 105 mmol/L (98-107) Carbon Dioxide Level 29 mmol/L (21-32) Anion Gap 8 (6-14) Blood Urea Nitrogen 8 mg/dL (7-20) Creatinine 0.6 mg/dL (0.6-1.0) Estimated GFR (Cockcroft-Gault) 103.8 BUN/Creatinine Ratio 13 (6-20) Glucose Level 88 mg/dL (70-99) Total Bilirubin 0.3 mg/dL (0.2-1.0) Aspartate Amino Transf (AST/SGOT) 35 U/L (15-37) Alanine Aminotransferase (ALT/SGPT) 53 U/L (14-59) Alkaline Phosphatase 25 U/L (46-116) Total Protein 5.2 g/dL (6.4-8.2) Albumin 2.3 g/dL (3.4-5.0) Albumin/Globulin Ratio 0.8 (1.0-1.7) Laboratory Tests Test 06/10/17 18:20 06/11/17 04:15 Vitamin B12 Level 1254 pg/mL (247-911) 25-Hydroxy Vitamin D Total 30.9 ng/mL (30-100) Thyroid Stimulating Hormone (TSH) 3.194 uIU/mL (0.358-3.74) White Blood Count 7.5 x10^3/uL (4.0-11.0) Red Blood Count 3.86 x10^6/uL (3.50-5.40) Hemoglobin 11.9 g/dL (12.0-15.5) Hematocrit 34.5 % (36.0-47.0) Mean Corpuscular Volume 89 fL (79-100) Mean Corpuscular Hemoglobin 31 pg (25-35) Mean Corpuscular Hemoglobin Concent 35 g/dL (31-37) Red Cell Distribution Width 13.7 % (11.5-14.5) Platelet Count 258 x10^3/uL (140-400) Neutrophils (%) (Auto) 46 % (31-73) Lymphocytes (%) (Auto) 26 % (24-48) Monocytes (%) (Auto) 13 % (0-9) Eosinophils (%) (Auto) 14 % (0-3) Basophils (%) (Auto) 1 % (0-3) Neutrophils # (Auto) 3.4 x10^3uL (1.8-7.7) Lymphocytes # (Auto) 2.0 x10^3/uL (1.0-4.8) Monocytes # (Auto) 1.0 x10^3/uL (0.0-1.1) Eosinophils # (Auto) 1.1 x10^3/uL (0.0-0.7) Basophils # (Auto) 0.1 x10^3/uL (0.0-0.2) Sodium Level 142 mmol/L (136-145) Potassium Level 3.6 mmol/L (3.5-5.1) Chloride Level 105 mmol/L (98-107) Carbon Dioxide Level 29 mmol/L (21-32) Anion Gap 8 (6-14) Blood Urea Nitrogen 8 mg/dL (7-20) Creatinine 0.6 mg/dL (0.6-1.0) Estimated GFR (Cockcroft-Gault) 103.8 BUN/Creatinine Ratio 13 (6-20) Glucose Level 88 mg/dL (70-99) Calcium Level 7.7 mg/dL (8.5-10.1) Total Bilirubin 0.3 mg/dL (0.2-1.0) Aspartate Amino Transf (AST/SGOT) 35 U/L (15-37) Alanine Aminotransferase (ALT/SGPT) 53 U/L (14-59) Alkaline Phosphatase 25 U/L (46-116) Total Protein 5.2 g/dL (6.4-8.2) Albumin 2.3 g/dL (3.4-5.0) Albumin/Globulin Ratio 0.8 (1.0-1.7) Microbiology 06/08/17 Blood Culture - Preliminary, Resulted NO GROWTH AFTER 3 DAYS 06/08/17 Urine Culture - Final, Complete 06/08/17 Urine Culture Result 1 (ED) - Final, Complete 06/08/17 Gram Stain - Final, Complete Medications Current Medications Ondansetron HCl (Zofran) 8 mg 1X ONCE IV Last administered on 06/08/17 08:52 ; Start 06/08/17 at 08:30; Stop 06/08/17 at 08:31; Status DC Fentanyl Citrate (Fentanyl 2ml Vial) 75 mcg 1X ONCE IV Last administered on 08:53; Start 06/08/17 at 08:30; Stop 06/08/17 at 08:31; Status DC Sodium Chloride 1,000 ml @ 1,000 mls/hr 1X ONCE IV Last administered on 06/08 08:50; Start 06/08/17 at 08:30; Stop 06/08/17 at 09:29; Status DC Ceftriaxone Sodium 2 gm/ Dextrose 100 ml @ 200 mls/hr Q24H IV ; Start at 09:15; Status UNV Ceftriaxone Sodium (Rocephin) 2 gm 1X ONCE IVP Last administered on 09:38; Start 06/08/17 at 09:30; Stop 06/08/17 at 19:41; Status DC Sodium Chloride 1,000 ml @ 1,000 mls/hr 1X ONCE IV Last administered on 06/08 09:37; Start 06/08/17 at 09:30; Stop 06/08/17 at 10:29; Status DC Acetaminophen (Tylenol) 1,000 mg 1X ONCE PO Last administered on 06/08/17 09 :38; Start 06/08/17 at 09:30; Stop 06/08/17 at 09:31; Status DC Ceftriaxone Sodium (Rocephin) 2 gm Q24H IVP ; Start 06/09/17 at 10:00; Stop at 10:00; Status DC Magnesium Oxide (Magnesium Oxide) 800 mg DAILY PO Last administered on 09:15; Start 06/08/17 at 10:00 Iohexol (Omnipaque 300 Mg/ml) 60 ml 1X ONCE IV Last administered on 10:18; Start 06/08/17 at 09:45; Stop 06/08/17 at 09:46; Status DC Info (Do NOT chart on this entry -- for MONITORING) 1 each PRN DAILY PRN MC SEE COMMENTS; Start 06/08/17 at 09:45; Stop 06/10/17 at 09:44; Status DC Promethazine HCl 12.5 mg/Sodium Chloride 50.5 ml @ 101 mls/hr 1X ONCE IV Last administered on 06/08/17 10:58; Start 06/08/17 at 10:00; Stop 06/08/17 at 10:29; Status DC Ondansetron HCl (Zofran) 4 mg PRN Q8HRS PRN IV NAUSEA/VOMITING Last administered on 06/08/17 20:08; Start 06/08/17 at 10:15; Stop 06/09/17 at 10 :14; Status DC Fentanyl Citrate (Fentanyl 2ml Vial) 50 mcg PRN Q2HR PRN IV PAIN Last administered on 06/09/17 00:44; Start 06/08/17 at 10:15; Stop 06/09/17 at 10 :14; Status DC Sodium Chloride 1,000 ml @ 100 mls/hr Q10H IV Last administered on 06/08/17 21:32; Start 06/08/17 at 10:30; Stop 06/09/17 at 10:29; Status DC Acetaminophen (Tylenol) 650 mg PRN Q4HRS PRN PO FEVER Last administered on 07:36; Start 06/08/17 at 10:15; Stop 06/09/17 at 10:14; Status DC Magnesium Sulfate/ Dextrose 50 ml @ 25 mls/hr 1X ONCE IV ; Start 06/08/17 at 13:30; Stop 06/08/17 at 13:30; Status DC Albuterol/ Ipratropium (Duoneb) 3 ml RTQID NEB Last administered on 06/11/17 15:44; Start 06/08/17 at 13:30 Fluoxetine HCl (PROzac) 20 mg DAILYWBKFT PO Last administered on 06/11/17 08: 00; Start 06/08/17 at 15:00 Piperacillin Sod/ Tazobactam Sod 3.375 gm/Dextrose 50 ml @ 100 mls/hr Q6HRS IV ; Start 06/09/17 at 00:00; Status UNV Piperacillin Sod/ Tazobactam Sod (Zosyn) 3.375 gm Q6HRS IVP Last administered on 06/11/17 11:39; Start 06/09/17 at 00:00 Potassium Chloride (Klor-Con) 20 meq DAILYWBKFT PO Last administered on 08:00; Start 06/10/17 at 08:00 Potassium Chloride (Klor-Con) 40 meq 1X ONCE PO Last administered on 13:00; Start 06/09/17 at 09:15; Stop 06/09/17 at 09:19; Status DC Doxycycline Hyclate (Vibra-Tab) 100 mg BID PO Last administered on 06/11/17 09:16; Start 06/09/17 at 15:30 Ondansetron HCl (Zofran) 4 mg PRN Q6HRS PRN IV NAUSEA/VOMITING Last administered on 06/09/17 17:23; Start 06/09/17 at 17:15 Morphine Sulfate 4 mg PRN Q4HRS PRN IV PAIN Last administered on 06/09/17 18: 23; Start 06/09/17 at 17:15 Oxycodone/ Acetaminophen (Percocet 5/325) 1 tab PRN Q4HRS PRN PO PAIN Last administered on 06/09/17 17:23; Start 06/09/17 at 17:15 Alprazolam (Xanax) 0.25 mg PRN Q6HRS PRN PO ANXIETY / AGITATION Last administered on 06/11/17 10:48; Start 06/10/17 at 12:15 Zolpidem Tartrate (Ambien) 5 mg PRN QHS PRN PO INSOMNIA Last administered on 20:24; Start 06/10/17 at 12:15 Gabapentin (Neurontin) 100 mg TID PO Last administered on 06/11/17 14:34; Start 06/10/17 at 21:00 Thiamine Mononitrate (Vitamin B-1) 100 mg DAILY PO Last administered on 09:16; Start 06/10/17 at 18:00 Lactobacillus Rhamnosus (Culturelle) 1 cap BID PO ; Start 06/11/17 at 21:00 Active Scripts Active Reported Prozac (Fluoxetine Hcl) 20 Mg Capsule 1 Cap PO DAILYWBKFT Hydrochlorothiazide Capsule (Hydrochlorothiazide) 12.5 Mg Capsule 1 Cap PO DAILY Lisinopril 20 Mg Tablet 1 Tab PO DAILY Vitals/I & O Vital Sign - Last 24 Hours 06/10/17 06/10/17 06/10/17 06/10/17 19:00 19:05 19:45 23:00 Temp 98.1 97.5 98.1 97.5 Pulse 90 78 Resp 20 20 B/P (MAP) 103/63 (76) 98/38 (58) Pulse Ox 96 97 100 O2 Delivery Room Air Room Air Room Air Room Air 06/11/17 06/11/17 06/11/17 06/11/17 03:00 07:00 07:44 08:00 Temp 98.5 97.7 98.5 97.7 Pulse 67 63 Resp 20 18 B/P (MAP) 116/65 (82) 116/80 (92) Pulse Ox 95 96 96 O2 Delivery Room Air Room Air Room Air Room Air 06/11/17 06/11/17 06/11/17 06/11/17 10:50 11:50 15:00 15:46 Temp 97.9 97.8 97.9 97.8 Pulse 76 61 Resp 20 20 B/P (MAP) 137/76 (96) 129/72 (91) Pulse Ox 97 100 O2 Delivery Room Air Room Air Room Air Room Air Intake and Output 06/10/17 06/10/17 06/11/17 15:00 23:00 07:00 Intake Total 360 ml Output Total 600 ml 1300 ml 1000 ml Balance -600 ml -1300 ml -640 ml VINH CARBALLO MD Jun 11, 2017 15:55
--- NOTE | 2017-06-11 16:06 | PDOC ---
PROGRESS NOTES Assessment Assessment Bilateral middle and ring finger numbness. Abnormal pain. Nausea Vomiting. Leukocytosis. UTI Hypocalcemia. HTN RECOMMENDATIONS/PLAN: Increase Neurontin to 300 mg tid. Vit B1 100 mg daily. Treat medical diseases. Continue observation. C-spine MRI w/wo contrast. GBS not likely so far, but continue observation. HISTORY OF THE PRESENT ILLNESS: 57-y-old female patient with above medical diseases developed symptoms of GI discomfort, nausea, vomiting and abdominal pain to come to the ER. She has leukocytosis and has been treated with antibiotics. She stated she has symptoms of numbness in her middle and ring fingers in both hands, but the rest fingers are not involved. Feet are not involved either. Past Medical History Cardiovascular: HTN Pulmonary: No pertinent hx GI: No pertinent hx Heme/Onc: No pertinent hx Hepatobiliary: No pertinent hx Psych: Depression Musculoskeletal: low back pain ENT: No pertinent hx Renal/: No pertinent hx Family History Non contributory. Social History Smoke: No ALCOHOL: social (2 twice a week) Drugs: None ALLERGY: Reviewed. MEDICATIONS: Refer to [facility] REVIEW OF SYSTEMS: Constitutional: No malnutrition, weight loss, cachexia. Head: No traumatic brain or head injury. Skin: No edema, or rash. Ear: No infection. Eyes: No vision loss or color blindness. Nose: No bleeding or purulent discharges. Hearing: No hearing decrease. Neck: No injury. Breast: No history of cancer, masses,or discharges. Cardiac: HTN. Pulmonary: No COPD. GI: No GI ulcer, GI bleeding. Urinary/genital: UTI. Endocrinologic: Obesity. Skeletomuscular: No muscular atrophy, deformity. Neurological: see HP. Psychiatric: Denies drug use/abuse. Otherwise, not -jfdav review of systems. PHYSICAL EXAMINATION: General appearance is in subacute distress. HEENT: Normocephalic and nontraumatic. Eyes, nose, ears, and throat are unremarkable. Neck is supple. No lymphadenopathy. No bruits are heard over the carotid artery. No crepitus. Cardiovascular: S1, S2, regular rate and rhythm. Pulmonary: Clear to auscultation bilaterally. Abdomen: Bowel sounds are positive. Extremities: No rash, lesions, or edema. No restriction of range of motion NEUROLOGICAL EXAMINATION: Alert Oriented to time, place and person. PERRL. EOMI. CN: no focal findings. Muscle tone: within normal. Muscle strength: 5 DTR: 2- Plantar reflex: Flexor response bilaterally Gait: not examined in bed. Sensory exam: no abnormal findings. No cerebellar signs elicited. F-T-N test accurate. Objective Objective Vital Signs Date Time Temp Pulse Resp B/P (MAP) Pulse Ox O2 Delivery O2 Flow Rate FiO2 06/11/17 15:46 Room Air 06/11/17 15:00 97.8 61 20 129/72 (91) 100 97.8 Intake and Output 06/11/17 07:00 Intake Total 360 ml Output Total 2900 ml Balance -2540 ml Intake Oral 360 ml Output Urine Total 2900 ml Vitals Signs Vitals VS - Last 72 Hours, by Label Date Time Temp Pulse Resp B/P (MAP) Pulse Ox O2 Delivery O2 Flow Rate FiO2 06/11/17 15:46 Room Air 06/11/17 15:00 97.8 61 20 129/72 (91) 100 Room Air 97.8 06/11/17 11:50 Room Air 06/11/17 10:50 97.9 76 20 137/76 (96) 97 Room Air 97.9 06/11/17 08:00 Room Air 06/11/17 07:44 96 Room Air 06/11/17 07:00 97.7 63 18 116/80 (92) 96 Room Air 97.7 06/11/17 03:00 98.5 67 20 116/65 (82) 95 Room Air 98.5 06/10/17 23:00 97.5 78 20 98/38 (58) 100 Room Air 97.5 06/10/17 19:45 97 Room Air 06/10/17 19:05 Room Air 06/10/17 19:00 98.1 90 20 103/63 (76) 96 Room Air 98.1 06/10/17 15:00 95.9 69 20 92/52 (65) 98 Room Air 95.9 06/10/17 11:00 97.7 65 20 107/63 (78) 96 Room Air 97.7 06/10/17 08:00 Room Air 06/10/17 07:22 98 Room Air 06/10/17 07:00 98.1 77 20 106/63 (77) 96 Room Air 98.1 Laboratory Laboratory Laboratory Tests Test 06/10/17 18:20 06/11/17 04:15 Vitamin B12 Level 1254 pg/mL (247-911) 25-Hydroxy Vitamin D Total 30.9 ng/mL (30-100) Thyroid Stimulating Hormone (TSH) 3.194 uIU/mL (0.358-3.74) White Blood Count 7.5 x10^3/uL (4.0-11.0) Red Blood Count 3.86 x10^6/uL (3.50-5.40) Hemoglobin 11.9 g/dL (12.0-15.5) Hematocrit 34.5 % (36.0-47.0) Mean Corpuscular Volume 89 fL (79-100) Mean Corpuscular Hemoglobin 31 pg (25-35) Mean Corpuscular Hemoglobin Concent 35 g/dL (31-37) Red Cell Distribution Width 13.7 % (11.5-14.5) Platelet Count 258 x10^3/uL (140-400) Neutrophils (%) (Auto) 46 % (31-73) Lymphocytes (%) (Auto) 26 % (24-48) Monocytes (%) (Auto) 13 % (0-9) Eosinophils (%) (Auto) 14 % (0-3) Basophils (%) (Auto) 1 % (0-3) Neutrophils # (Auto) 3.4 x10^3uL (1.8-7.7) Lymphocytes # (Auto) 2.0 x10^3/uL (1.0-4.8) Monocytes # (Auto) 1.0 x10^3/uL (0.0-1.1) Eosinophils # (Auto) 1.1 x10^3/uL (0.0-0.7) Basophils # (Auto) 0.1 x10^3/uL (0.0-0.2) Sodium Level 142 mmol/L (136-145) Potassium Level 3.6 mmol/L (3.5-5.1) Chloride Level 105 mmol/L (98-107) Carbon Dioxide Level 29 mmol/L (21-32) Anion Gap 8 (6-14) Blood Urea Nitrogen 8 mg/dL (7-20) Creatinine 0.6 mg/dL (0.6-1.0) Estimated GFR (Cockcroft-Gault) 103.8 BUN/Creatinine Ratio 13 (6-20) Glucose Level 88 mg/dL (70-99) Calcium Level 7.7 mg/dL (8.5-10.1) Total Bilirubin 0.3 mg/dL (0.2-1.0) Aspartate Amino Transf (AST/SGOT) 35 U/L (15-37) Alanine Aminotransferase (ALT/SGPT) 53 U/L (14-59) Alkaline Phosphatase 25 U/L (46-116) Total Protein 5.2 g/dL (6.4-8.2) Albumin 2.3 g/dL (3.4-5.0) Albumin/Globulin Ratio 0.8 (1.0-1.7) Microbiology 06/08/17 Blood Culture - Preliminary, Resulted NO GROWTH AFTER 3 DAYS 06/08/17 Urine Culture - Final, Complete 06/08/17 Urine Culture Result 1 (ED) - Final, Complete 06/08/17 Gram Stain - Final, Complete Medication Medications Current Medications Gabapentin (Neurontin) 100 mg TID PO Last administered on 06/11/17t 14:34; Start 06/10/17 at 21:00 Lactobacillus Rhamnosus (Culturelle) 1 cap BID PO ; Start 06/11/17 at 21:00 Thiamine Mononitrate (Vitamin B-1) 100 mg DAILY PO Last administered on 09:16; Start 06/10/17 at 18:00 Comment Review of Relevant I have reviewed the following items rambo (where applicable) has been applied. RANDALL CARIAS MD Jun 11, 2017 16:06
[2017-06-11 19:00] VITALS: BP 156/81
[2017-06-11] MEDS ORDERED: GADOBUTROL 10 MMOL/10 ML VIAL IV ONE (20:45)
[2017-06-11] MEDS: LACTOBACILLUS RHAMNOSUS GG 1 CAPSULE. PO SCH (21:07)
[2017-06-11] MEDS: ZOLPIDEM 5 MG TABLET. PO PRN (21:07)
[2017-06-11 23:00] VITALS: BP 120/73
[2017-06-12 02:53] VITALS: BP 126/61
[2017-06-12] MEDS: PIPERACILLIN/TAZO IV Push 3.375 GM VIAL. IVP SCH (05:37)
[2017-06-12 06:03] LABS: BASO # 0.1 x10^3/uL (0.0-0.2); BASO % 1 % (0-3); EOS % 11 % (0-3); HEMATOCRIT 35.3 % (36.0-47.0); HEMOGLOBIN 12.1 g/dL (12.0-15.5); LYMPH # 3.1 x10^3/uL (1.0-4.8); LYMPH % 35 % (24-48); MEAN CORPUSCULAR HEMOGLOBIN 31 pg (25-35); MEAN CORPUSCULAR HGB CONC 34 g/dL (31-37); MEAN CORPUSCULAR VOLUME 90 fL (79-100); MONO % 11 % (0-9); NEUT % 42 % (31-73); PLATELET COUNT 305 x10^3/uL (140-400); RED BLOOD COUNT 3.94 x10^6/uL (3.50-5.40); RED CELL DISTRIBUTION WIDTH 13.9 % (11.5-14.5); WHITE BLOOD COUNT 8.8 x10^3/uL (4.0-11.0)
[2017-06-12 06:17] LABS: ALBUMIN 2.3 g/dL (3.4-5.0); ALBUMIN/GLOBULIN RATIO 0.7 (1.0-1.7); CALCIUM 7.9 mg/dL (8.5-10.1); CREATININE 0.7 mg/dL (0.6-1.0); GFR 86.9; POTASSIUM 3.9 mmol/L (3.5-5.1); TOTAL BILIRUBIN 0.3 mg/dL (0.2-1.0); TOTAL PROTEIN 5.7 g/dL (6.4-8.2)
[2017-06-12 07:00] VITALS: BP 128/73
[2017-06-12] MEDS: IPRATRPIUM/ALBUTEROL 0.5/2.5MG 3 ML NEBU. NEB SCH (07:38)
[2017-06-12] MEDS: POTASSIUM CHLORIDE 20 MEQ TABLET.ER. PO SCH (08:00)
[2017-06-12] MEDS: THIAMINE 100 MG TABLET. PO SCH (08:01)
[2017-06-12] MEDS: GABAPENTIN 100 MG CAPSULE. PO SCH (08:01)
[2017-06-12] MEDS: FLUoxetine HCL 20 MG CAPSULE PO SCH (08:01)
[2017-06-12] MEDS: LACTOBACILLUS RHAMNOSUS GG 1 CAPSULE. PO SCH (08:01)
[2017-06-12] MEDS: MAGNESIUM OXIDE 400 MG TABLET PO SCH (08:01)
[2017-06-12] MEDS: DOXYCYCLINE HYCLATE 100 MG TABLET PO SCH (08:01)
--- NOTE | 2017-06-12 08:04 | RAD ---
MRI Cervical Spine with and without contrast History: Bilateral hand numbness for 2 days Technique: Multiplanar, multi sequential pre and postcontrast MR imaging was performed of the cervical spine. Contrast: 10 cc Gadavist Comparison: None Findings: Cervical cord caliber is within normal limits without convincing focal signal abnormality or enhancement. There is no significant abnormality of the cervical medullary junction. Cervical vertebral body stature and AP alignment are maintained. Intervertebral disc spaces are adequate. There is no significant marrow edema. There is 1.2 cm T2 hyperintense nodule along the lateral aspect of right thyroid gland. C2-C3: Spinal canal and neural foramina are adequate. C3-C4: Neural foramina and spinal canal are adequate. C4-C5: Neural foramina and spinal canal are adequate. There is mild facet degenerative change greater on the right. C5-C6: Neural foramina and spinal canal are adequate. There is mild facet degenerative change. C6-C7: Neural foramina and spinal canal are adequate. There is moderate to severe right facet degenerative change, minimally on the left. C7-T1: Spinal canal and neural foramina are adequate. Impression: 1. There is no cervical spinal stenosis or neural foramina compromise. There is no convincing cervical cord signal abnormality. 2. There is 1.2 cm nodule along the lateral aspect of the right thyroid gland. Electronically signed by: Liu Villa MD (06/12/2017 8:01 AM) [email or web address]
--- NOTE | 2017-06-12 10:03 | PDOC ---
PROGRESS NOTES Chief Complaint Chief Complaint acute hypoxia respiratory failure acute abdomen pain, sepsis MRSA BACTEREMIA UTI YAO Hypokalemia Hypocalcemia obesity,BMI 33 depression hypertension PLAN CRP D/C today IF DOING WELL WITH AUGMENTIN, DOXY History of Present Illness History of Present Illness Patient receiving treatment for abdominal pain, Imaging of RUQ demonstrated nodularity at the gallbladder fundus and a recommended CT follow up scan in 3 months outpatient. Blood cultures grew MRSA+ bacteremia for which patient is receiving IV abx. Vitals Vitals Vital Signs Date Time Temp Pulse Resp B/P (MAP) Pulse Ox O2 Delivery O2 Flow Rate FiO2 06/12/17 08:00 Room Air 06/12/17 07:40 95 06/12/17 07:00 98.4 62 18 128/73 (91) 98.4 Physical Exam Physical Exam Physical Exam General: Alert, Oriented X3, Cooperative, No acute distress Heart: Regular rate, No murmurs Lungs: Clear Abdomen: Normal bowel sounds, Soft, No tenderness, No masses General: Alert, Oriented X3, Cooperative, No acute distress Heart: Regular rate, Normal S1, Normal S2, No murmurs Lungs: Clear Abdomen: Normal bowel sounds, Soft, No tenderness, No masses Extremities: No clubbing, No cyanosis, Other (hands swollen, edema to hand and feet, ) Skin: No breakdown Labs LABS Laboratory Tests Test 06/12/17 05:15 White Blood Count 8.8 x10^3/uL (4.0-11.0) Red Blood Count 3.94 x10^6/uL (3.50-5.40) Hemoglobin 12.1 g/dL (12.0-15.5) Hematocrit 35.3 % (36.0-47.0) Mean Corpuscular Volume 90 fL (79-100) Mean Corpuscular Hemoglobin 31 pg (25-35) Mean Corpuscular Hemoglobin Concent 34 g/dL (31-37) Red Cell Distribution Width 13.9 % (11.5-14.5) Platelet Count 305 x10^3/uL (140-400) Neutrophils (%) (Auto) 42 % (31-73) Lymphocytes (%) (Auto) 35 % (24-48) Monocytes (%) (Auto) 11 % (0-9) Eosinophils (%) (Auto) 11 % (0-3) Basophils (%) (Auto) 1 % (0-3) Neutrophils # (Auto) 3.7 x10^3uL (1.8-7.7) Lymphocytes # (Auto) 3.1 x10^3/uL (1.0-4.8) Monocytes # (Auto) 1.0 x10^3/uL (0.0-1.1) Eosinophils # (Auto) 1.0 x10^3/uL (0.0-0.7) Basophils # (Auto) 0.1 x10^3/uL (0.0-0.2) Sodium Level 143 mmol/L (136-145) Potassium Level 3.9 mmol/L (3.5-5.1) Chloride Level 106 mmol/L (98-107) Carbon Dioxide Level 28 mmol/L (21-32) Anion Gap 9 (6-14) Blood Urea Nitrogen 8 mg/dL (7-20) Creatinine 0.7 mg/dL (0.6-1.0) Estimated GFR (Cockcroft-Gault) 86.9 BUN/Creatinine Ratio 11 (6-20) Glucose Level 93 mg/dL (70-99) Calcium Level 7.9 mg/dL (8.5-10.1) Total Bilirubin 0.3 mg/dL (0.2-1.0) Aspartate Amino Transf (AST/SGOT) 64 U/L (15-37) Alanine Aminotransferase (ALT/SGPT) 95 U/L (14-59) Alkaline Phosphatase 28 U/L (46-116) Total Protein 5.7 g/dL (6.4-8.2) Albumin 2.3 g/dL (3.4-5.0) Albumin/Globulin Ratio 0.7 (1.0-1.7) Assessment and Plan Assessmemt and Plan Problems Medical Problems: (1) Abscess Status: Acute (2) Hypomagnesemia Status: Acute (3) Lactic acid acidosis Status: Acute (4) Sepsis Status: Acute (5) UTI (urinary tract infection) Status: Acute Problems: Comment Review of Relevant I have reviewed the following items rambo (where applicable) has been applied. Labs Laboratory Tests Test 06/10/17 13:20 06/10/17 18:20 06/11/17 04:15 06/12/17 05:15 Calcium Level 7.6 mg/dL (8.5-10.1) 7.7 mg/dL (8.5-10.1) 7.9 mg/dL (8.5-10.1) Magnesium Level 1.9 mg/dL (1.8-2.4) Vitamin B12 Level 1254 pg/mL (247-911) 25-Hydroxy Vitamin D Total 30.9 ng/mL (30-100) Thyroid Stimulating Hormone (TSH) 3.194 uIU/mL (0.358-3.74) White Blood Count 7.5 x10^3/uL (4.0-11.0) 8.8 x10^3/uL (4.0-11.0) Red Blood Count 3.86 x10^6/uL (3.50-5.40) 3.94 x10^6/uL (3.50-5.40) Hemoglobin 11.9 g/dL (12.0-15.5) 12.1 g/dL (12.0-15.5) Hematocrit 34.5 % (36.0-47.0) 35.3 % (36.0-47.0) Mean Corpuscular Volume 89 fL (79-100) 90 fL (79-100) Mean Corpuscular Hemoglobin 31 pg (25-35) 31 pg (25-35) Mean Corpuscular Hemoglobin Concent 35 g/dL (31-37) 34 g/dL (31-37) Red Cell Distribution Width 13.7 % (11.5-14.5) 13.9 % (11.5-14.5) Platelet Count 258 x10^3/uL (140-400) 305 x10^3/uL (140-400) Neutrophils (%) (Auto) 46 % (31-73) 42 % (31-73) Lymphocytes (%) (Auto) 26 % (24-48) 35 % (24-48) Monocytes (%) (Auto) 13 % (0-9) 11 % (0-9) Eosinophils (%) (Auto) 14 % (0-3) 11 % (0-3) Basophils (%) (Auto) 1 % (0-3) 1 % (0-3) Neutrophils # (Auto) 3.4 x10^3uL (1.8-7.7) 3.7 x10^3uL (1.8-7.7) Lymphocytes # (Auto) 2.0 x10^3/uL (1.0-4.8) 3.1 x10^3/uL (1.0-4.8) Monocytes # (Auto) 1.0 x10^3/uL (0.0-1.1) 1.0 x10^3/uL (0.0-1.1) Eosinophils # (Auto) 1.1 x10^3/uL (0.0-0.7) 1.0 x10^3/uL (0.0-0.7) Basophils # (Auto) 0.1 x10^3/uL (0.0-0.2) 0.1 x10^3/uL (0.0-0.2) Sodium Level 142 mmol/L (136-145) 143 mmol/L (136-145) Potassium Level 3.6 mmol/L (3.5-5.1) 3.9 mmol/L (3.5-5.1) Chloride Level 105 mmol/L (98-107) 106 mmol/L (98-107) Carbon Dioxide Level 29 mmol/L (21-32) 28 mmol/L (21-32) Anion Gap 8 (6-14) 9 (6-14) Blood Urea Nitrogen 8 mg/dL (7-20) 8 mg/dL (7-20) Creatinine 0.6 mg/dL (0.6-1.0) 0.7 mg/dL (0.6-1.0) Estimated GFR (Cockcroft-Gault) 103.8 86.9 BUN/Creatinine Ratio 13 (6-20) 11 (6-20) Glucose Level 88 mg/dL (70-99) 93 mg/dL (70-99) Total Bilirubin 0.3 mg/dL (0.2-1.0) 0.3 mg/dL (0.2-1.0) Aspartate Amino Transf (AST/SGOT) 35 U/L (15-37) 64 U/L (15-37) Alanine Aminotransferase (ALT/SGPT) 53 U/L (14-59) 95 U/L (14-59) Alkaline Phosphatase 25 U/L (46-116) 28 U/L (46-116) C-Reactive Protein, Quantitative 71.3 mg/L (0-3.3) Total Protein 5.2 g/dL (6.4-8.2) 5.7 g/dL (6.4-8.2) Albumin 2.3 g/dL (3.4-5.0) 2.3 g/dL (3.4-5.0) Albumin/Globulin Ratio 0.8 (1.0-1.7) 0.7 (1.0-1.7) Laboratory Tests Test 06/12/17 05:15 White Blood Count 8.8 x10^3/uL (4.0-11.0) Red Blood Count 3.94 x10^6/uL (3.50-5.40) Hemoglobin 12.1 g/dL (12.0-15.5) Hematocrit 35.3 % (36.0-47.0) Mean Corpuscular Volume 90 fL (79-100) Mean Corpuscular Hemoglobin 31 pg (25-35) Mean Corpuscular Hemoglobin Concent 34 g/dL (31-37) Red Cell Distribution Width 13.9 % (11.5-14.5) Platelet Count 305 x10^3/uL (140-400) Neutrophils (%) (Auto) 42 % (31-73) Lymphocytes (%) (Auto) 35 % (24-48) Monocytes (%) (Auto) 11 % (0-9) Eosinophils (%) (Auto) 11 % (0-3) Basophils (%) (Auto) 1 % (0-3) Neutrophils # (Auto) 3.7 x10^3uL (1.8-7.7) Lymphocytes # (Auto) 3.1 x10^3/uL (1.0-4.8) Monocytes # (Auto) 1.0 x10^3/uL (0.0-1.1) Eosinophils # (Auto) 1.0 x10^3/uL (0.0-0.7) Basophils # (Auto) 0.1 x10^3/uL (0.0-0.2) Sodium Level 143 mmol/L (136-145) Potassium Level 3.9 mmol/L (3.5-5.1) Chloride Level 106 mmol/L (98-107) Carbon Dioxide Level 28 mmol/L (21-32) Anion Gap 9 (6-14) Blood Urea Nitrogen 8 mg/dL (7-20) Creatinine 0.7 mg/dL (0.6-1.0) Estimated GFR (Cockcroft-Gault) 86.9 BUN/Creatinine Ratio 11 (6-20) Glucose Level 93 mg/dL (70-99) Calcium Level 7.9 mg/dL (8.5-10.1) Total Bilirubin 0.3 mg/dL (0.2-1.0) Aspartate Amino Transf (AST/SGOT) 64 U/L (15-37) Alanine Aminotransferase (ALT/SGPT) 95 U/L (14-59) Alkaline Phosphatase 28 U/L (46-116) Total Protein 5.7 g/dL (6.4-8.2) Albumin 2.3 g/dL (3.4-5.0) Albumin/Globulin Ratio 0.7 (1.0-1.7) Microbiology 06/08/17 Blood Culture - Preliminary, Resulted NO GROWTH AFTER 4 DAYS 06/08/17 Urine Culture - Final, Complete 06/08/17 Urine Culture Result 1 (ED) - Final, Complete 06/08/17 Gram Stain - Final, Complete Medications Current Medications Ondansetron HCl (Zofran) 8 mg 1X ONCE IV Last administered on 06/08/17 08:52 ; Start 06/08/17 at 08:30; Stop 06/08/17 at 08:31; Status DC Fentanyl Citrate (Fentanyl 2ml Vial) 75 mcg 1X ONCE IV Last administered on 08:53; Start 06/08/17 at 08:30; Stop 06/08/17 at 08:31; Status DC Sodium Chloride 1,000 ml @ 1,000 mls/hr 1X ONCE IV Last administered on 06/08 08:50; Start 06/08/17 at 08:30; Stop 06/08/17 at 09:29; Status DC Ceftriaxone Sodium 2 gm/ Dextrose 100 ml @ 200 mls/hr Q24H IV ; Start at 09:15; Status UNV Ceftriaxone Sodium (Rocephin) 2 gm 1X ONCE IVP Last administered on 09:38; Start 06/08/17 at 09:30; Stop 06/08/17 at 19:41; Status DC Sodium Chloride 1,000 ml @ 1,000 mls/hr 1X ONCE IV Last administered on 06/08 09:37; Start 06/08/17 at 09:30; Stop 06/08/17 at 10:29; Status DC Acetaminophen (Tylenol) 1,000 mg 1X ONCE PO Last administered on 06/08/17 09 :38; Start 06/08/17 at 09:30; Stop 06/08/17 at 09:31; Status DC Ceftriaxone Sodium (Rocephin) 2 gm Q24H IVP ; Start 06/09/17 at 10:00; Stop at 10:00; Status DC Magnesium Oxide (Magnesium Oxide) 800 mg DAILY PO Last administered on 08:01; Start 06/08/17 at 10:00 Iohexol (Omnipaque 300 Mg/ml) 60 ml 1X ONCE IV Last administered on 10:18; Start 06/08/17 at 09:45; Stop 06/08/17 at 09:46; Status DC Info (Do NOT chart on this entry -- for MONITORING) 1 each PRN DAILY PRN MC SEE COMMENTS; Start 06/08/17 at 09:45; Stop 06/10/17 at 09:44; Status DC Promethazine HCl 12.5 mg/Sodium Chloride 50.5 ml @ 101 mls/hr 1X ONCE IV Last administered on 06/08/17 10:58; Start 06/08/17 at 10:00; Stop 06/08/17 at 10:29; Status DC Ondansetron HCl (Zofran) 4 mg PRN Q8HRS PRN IV NAUSEA/VOMITING Last administered on 06/08/17 20:08; Start 06/08/17 at 10:15; Stop 06/09/17 at 10 :14; Status DC Fentanyl Citrate (Fentanyl 2ml Vial) 50 mcg PRN Q2HR PRN IV PAIN Last administered on 06/09/17 00:44; Start 06/08/17 at 10:15; Stop 06/09/17 at 10 :14; Status DC Sodium Chloride 1,000 ml @ 100 mls/hr Q10H IV Last administered on 06/08/17 21:32; Start 06/08/17 at 10:30; Stop 06/09/17 at 10:29; Status DC Acetaminophen (Tylenol) 650 mg PRN Q4HRS PRN PO FEVER Last administered on 07:36; Start 06/08/17 at 10:15; Stop 06/09/17 at 10:14; Status DC Magnesium Sulfate/ Dextrose 50 ml @ 25 mls/hr 1X ONCE IV ; Start 06/08/17 at 13:30; Stop 06/08/17 at 13:30; Status DC Albuterol/ Ipratropium (Duoneb) 3 ml RTQID NEB Last administered on 06/12/17 07:38; Start 06/08/17 at 13:30 Fluoxetine HCl (PROzac) 20 mg DAILYWBKFT PO Last administered on 06/12/17 08: 01; Start 06/08/17 at 15:00 Piperacillin Sod/ Tazobactam Sod 3.375 gm/Dextrose 50 ml @ 100 mls/hr Q6HRS IV ; Start 06/09/17 at 00:00; Status UNV Piperacillin Sod/ Tazobactam Sod (Zosyn) 3.375 gm Q6HRS IVP Last administered on 06/12/17 05:37; Start 06/09/17 at 00:00 Potassium Chloride (Klor-Con) 20 meq DAILYWBKFT PO Last administered on 08:00; Start 06/10/17 at 08:00 Potassium Chloride (Klor-Con) 40 meq 1X ONCE PO Last administered on 13:00; Start 06/09/17 at 09:15; Stop 06/09/17 at 09:19; Status DC Doxycycline Hyclate (Vibra-Tab) 100 mg BID PO Last administered on 06/12/17 08:01; Start 06/09/17 at 15:30 Ondansetron HCl (Zofran) 4 mg PRN Q6HRS PRN IV NAUSEA/VOMITING Last administered on 06/09/17 17:23; Start 06/09/17 at 17:15 Morphine Sulfate 4 mg PRN Q4HRS PRN IV PAIN Last administered on 06/09/17 18: 23; Start 06/09/17 at 17:15 Oxycodone/ Acetaminophen (Percocet 5/325) 1 tab PRN Q4HRS PRN PO PAIN Last administered on 06/09/17 17:23; Start 06/09/17 at 17:15 Alprazolam (Xanax) 0.25 mg PRN Q6HRS PRN PO ANXIETY / AGITATION Last administered on 06/11/17 22:57; Start 06/10/17 at 12:15 Zolpidem Tartrate (Ambien) 5 mg PRN QHS PRN PO INSOMNIA Last administered on 21:07; Start 06/10/17 at 12:15 Gabapentin (Neurontin) 100 mg TID PO Last administered on 06/12/17 08:01; Start 06/10/17 at 21:00 Thiamine Mononitrate (Vitamin B-1) 100 mg DAILY PO Last administered on 08:01; Start 06/10/17 at 18:00 Lactobacillus Rhamnosus (Culturelle) 1 cap BID PO Last administered on 08:01; Start 06/11/17 at 21:00 Gadobutrol (Gadavist) 10 mmol 1X ONCE IV Last administered on 06/11/17 20:53 ; Start 06/11/17 at 20:45; Stop 06/11/17 at 20:46; Status DC Active Scripts Active Reported Prozac (Fluoxetine Hcl) 20 Mg Capsule 1 Cap PO DAILYWBKFT Hydrochlorothiazide Capsule (Hydrochlorothiazide) 12.5 Mg Capsule 1 Cap PO DAILY Lisinopril 20 Mg Tablet 1 Tab PO DAILY Vitals/I & O Vital Sign - Last 24 Hours 06/11/17 06/11/17 06/11/17 06/11/17 10:50 11:50 15:00 15:46 Temp 97.9 97.8 97.9 97.8 Pulse 76 61 Resp 20 20 B/P (MAP) 137/76 (96) 129/72 (91) Pulse Ox 97 100 O2 Delivery Room Air Room Air Room Air Room Air 06/11/17 06/11/17 06/11/17 06/12/17 19:00 19:00 23:00 02:53 Temp 97.7 96.4 97.5 97.7 96.4 97.5 Pulse 69 62 63 Resp 18 18 18 B/P (MAP) 156/81 (106) 120/73 (89) 126/61 (82) Pulse Ox 98 97 95 O2 Delivery Room Air Room Air Room Air Room Air 06/12/17 06/12/17 06/12/17 07:00 07:40 08:00 Temp 98.4 98.4 Pulse 62 Resp 18 B/P (MAP) 128/73 (91) Pulse Ox 94 95 O2 Delivery Room Air Room Air Room Air Intake and Output 06/11/17 06/11/17 06/12/17 15:00 23:00 07:00 Intake Total 600 ml 360 ml Output Total 1300 ml Balance -700 ml 360 ml VINH CARBALLO MD Jun 12, 2017 10:03
--- NOTE | 2017-06-12 10:07 | PDOC3 ---
Discharge Summary Date of Admission: Jun 08, 2017 Date of Discharge: Jun 12, 2017 Follow-Up: 3-5 days Admitting Diagnosis comment: Chief Complaint Chief Complaint acute hypoxia respiratory failure acute abdomen pain, sepsis MRSA BACTEREMIA UTI YAO Hypokalemia Hypocalcemia obesity,BMI 33 depression hypertension PLAN CRP D/C today IF DOING WELL WITH AUGMENTIN, DOXY History of Present Illness History of Present Illness Patient receiving treatment for abdominal pain, Imaging of RUQ demonstrated nodularity at the gallbladder fundus and a recommended CT follow up scan in 3 months outpatient. Blood cultures grew MRSA+ bacteremia for which patient is receiving IV abx., now d/c , augmentin and doxy History of Present Illness History of Present Illness Ms Teran, is a 57 year old female admit for acute abdominal pain with vomiting and generalized malaise fatigue and chills. Symptoms started 2 days [employer] and she has tried drinking water and Gatorade for 2 days but had worsened markedly, unable to keep PO intake down abdominal pain WAS diffuse and crampy, worsened w. vomiting. Emesis WAS nonbloody nonbilious - yellowish clear no change in stools Past Medical History Cardiovascular: HTN Pulmonary: No pertinent hx GI: No pertinent hx Heme/Onc: No pertinent hx Hepatobiliary: No pertinent hx Psych: Depression Musculoskeletal: low back pain ENT: No pertinent hx Renal/: No pertinent hx Family History Family History: Other Social History Smoke: No ALCOHOL: social (2 twice a week) Problems: FINAL DIAGNOSIS Problems Medical Problems: (1) Abscess Status: Acute (2) Hypomagnesemia Status: Acute (3) Lactic acid acidosis Status: Acute (4) Sepsis Status: Acute (5) UTI (urinary tract infection) Status: Acute BACTEREMIA Brief Hospital Course CONDITION AT DISCHARGE: Improved Discharge Medications Current Medications Ondansetron HCl (Zofran) 8 mg 1X ONCE IV Last administered on 06/08/17 08:52 ; Start 06/08/17 at 08:30; Stop 06/08/17 at 08:31; Status DC Fentanyl Citrate (Fentanyl 2ml Vial) 75 mcg 1X ONCE IV Last administered on 08:53; Start 06/08/17 at 08:30; Stop 06/08/17 at 08:31; Status DC Sodium Chloride 1,000 ml @ 1,000 mls/hr 1X ONCE IV Last administered on 12/16 /17at 08:50; Start 06/08/17 at 08:30; Stop 06/08/17 at 09:29; Status DC Ceftriaxone Sodium 2 gm/ Dextrose 100 ml @ 200 mls/hr Q24H IV ; Start at 09:15; Status UNV Ceftriaxone Sodium (Rocephin) 2 gm 1X ONCE IVP Last administered on 09:38; Start 06/08/17 at 09:30; Stop 06/08/17 at 19:41; Status DC Sodium Chloride 1,000 ml @ 1,000 mls/hr 1X ONCE IV Last administered on 06/08 09:37; Start 06/08/17 at 09:30; Stop 06/08/17 at 10:29; Status DC Acetaminophen (Tylenol) 1,000 mg 1X ONCE PO Last administered on 06/08/17 09 :38; Start 06/08/17 at 09:30; Stop 06/08/17 at 09:31; Status DC Ceftriaxone Sodium (Rocephin) 2 gm Q24H IVP ; Start 06/09/17 at 10:00; Stop at 10:00; Status DC Magnesium Oxide (Magnesium Oxide) 800 mg DAILY PO Last administered on 08:01; Start 06/08/17 at 10:00 Iohexol (Omnipaque 300 Mg/ml) 60 ml 1X ONCE IV Last administered on 10:18; Start 06/08/17 at 09:45; Stop 06/08/17 at 09:46; Status DC Info (Do NOT chart on this entry -- for MONITORING) 1 each PRN DAILY PRN MC SEE COMMENTS; Start 06/08/17 at 09:45; Stop 06/10/17 at 09:44; Status DC Promethazine HCl 12.5 mg/Sodium Chloride 50.5 ml @ 101 mls/hr 1X ONCE IV Last administered on 06/08/17 10:58; Start 06/08/17 at 10:00; Stop 06/08/17 at 10:29; Status DC Ondansetron HCl (Zofran) 4 mg PRN Q8HRS PRN IV NAUSEA/VOMITING Last administered on 06/08/17 20:08; Start 06/08/17 at 10:15; Stop 06/09/17 at 10 :14; Status DC Fentanyl Citrate (Fentanyl 2ml Vial) 50 mcg PRN Q2HR PRN IV PAIN Last administered on 06/09/17 00:44; Start 06/08/17 at 10:15; Stop 06/09/17 at 10 :14; Status DC Sodium Chloride 1,000 ml @ 100 mls/hr Q10H IV Last administered on 06/08/17 21:32; Start 06/08/17 at 10:30; Stop 06/09/17 at 10:29; Status DC Acetaminophen (Tylenol) 650 mg PRN Q4HRS PRN PO FEVER Last administered on 07:36; Start 06/08/17 at 10:15; Stop 06/09/17 at 10:14; Status DC Magnesium Sulfate/ Dextrose 50 ml @ 25 mls/hr 1X ONCE IV ; Start 06/08/17 at 13:30; Stop 06/08/17 at 13:30; Status DC Albuterol/ Ipratropium (Duoneb) 3 ml RTQID NEB Last administered on 06/12/17 07:38; Start 06/08/17 at 13:30 Fluoxetine HCl (PROzac) 20 mg DAILYWBKFT PO Last administered on 06/12/17 08: 01; Start 06/08/17 at 15:00 Piperacillin Sod/ Tazobactam Sod 3.375 gm/Dextrose 50 ml @ 100 mls/hr Q6HRS IV ; Start 06/09/17 at 00:00; Status UNV Piperacillin Sod/ Tazobactam Sod (Zosyn) 3.375 gm Q6HRS IVP Last administered on 06/12/17 05:37; Start 06/09/17 at 00:00 Potassium Chloride (Klor-Con) 20 meq DAILYWBKFT PO Last administered on 08:00; Start 06/10/17 at 08:00 Potassium Chloride (Klor-Con) 40 meq 1X ONCE PO Last administered on 13:00; Start 06/09/17 at 09:15; Stop 06/09/17 at 09:19; Status DC Doxycycline Hyclate (Vibra-Tab) 100 mg BID PO Last administered on 06/12/17 08:01; Start 06/09/17 at 15:30 Ondansetron HCl (Zofran) 4 mg PRN Q6HRS PRN IV NAUSEA/VOMITING Last administered on 06/09/17 17:23; Start 06/09/17 at 17:15 Morphine Sulfate 4 mg PRN Q4HRS PRN IV PAIN Last administered on 06/09/17 18: 23; Start 06/09/17 at 17:15 Oxycodone/ Acetaminophen (Percocet 5/325) 1 tab PRN Q4HRS PRN PO PAIN Last administered on 06/09/17 17:23; Start 06/09/17 at 17:15 Alprazolam (Xanax) 0.25 mg PRN Q6HRS PRN PO ANXIETY / AGITATION Last administered on 06/11/17 22:57; Start 06/10/17 at 12:15 Zolpidem Tartrate (Ambien) 5 mg PRN QHS PRN PO INSOMNIA Last administered on 21:07; Start 06/10/17 at 12:15 Gabapentin (Neurontin) 100 mg TID PO Last administered on 06/12/17 08:01; Start 06/10/17 at 21:00 Thiamine Mononitrate (Vitamin B-1) 100 mg DAILY PO Last administered on 08:01; Start 06/10/17 at 18:00 Lactobacillus Rhamnosus (Culturelle) 1 cap BID PO Last administered on 08:01; Start 06/11/17 at 21:00 Gadobutrol (Gadavist) 10 mmol 1X ONCE IV Last administered on 06/11/17 20:53 ; Start 06/11/17 at 20:45; Stop 06/11/17 at 20:46; Status DC Active Scripts Active Reported Prozac (Fluoxetine Hcl) 20 Mg Capsule 1 Cap PO DAILYWBKFT Hydrochlorothiazide Capsule (Hydrochlorothiazide) 12.5 Mg Capsule 1 Cap PO DAILY Lisinopril 20 Mg Tablet 1 Tab PO DAILY Vital Signs Vital Signs Date Time Temp Pulse Resp B/P (MAP) Pulse Ox O2 Delivery O2 Flow Rate FiO2 06/12/17 08:00 Room Air 06/12/17 07:40 95 06/12/17 07:00 98.4 62 18 128/73 (91) 98.4 Labs Laboratory Tests Test 06/10/17 13:20 06/10/17 18:20 06/11/17 04:15 06/12/17 05:15 Calcium Level 7.6 mg/dL (8.5-10.1) 7.7 mg/dL (8.5-10.1) 7.9 mg/dL (8.5-10.1) Magnesium Level 1.9 mg/dL (1.8-2.4) Vitamin B12 Level 1254 pg/mL (247-911) 25-Hydroxy Vitamin D Total 30.9 ng/mL (30-100) Thyroid Stimulating Hormone (TSH) 3.194 uIU/mL (0.358-3.74) White Blood Count 7.5 x10^3/uL (4.0-11.0) 8.8 x10^3/uL (4.0-11.0) Red Blood Count 3.86 x10^6/uL (3.50-5.40) 3.94 x10^6/uL (3.50-5.40) Hemoglobin 11.9 g/dL (12.0-15.5) 12.1 g/dL (12.0-15.5) Hematocrit 34.5 % (36.0-47.0) 35.3 % (36.0-47.0) Mean Corpuscular Volume 89 fL (79-100) 90 fL (79-100) Mean Corpuscular Hemoglobin 31 pg (25-35) 31 pg (25-35) Mean Corpuscular Hemoglobin Concent 35 g/dL (31-37) 34 g/dL (31-37) Red Cell Distribution Width 13.7 % (11.5-14.5) 13.9 % (11.5-14.5) Platelet Count 258 x10^3/uL (140-400) 305 x10^3/uL (140-400) Neutrophils (%) (Auto) 46 % (31-73) 42 % (31-73) Lymphocytes (%) (Auto) 26 % (24-48) 35 % (24-48) Monocytes (%) (Auto) 13 % (0-9) 11 % (0-9) Eosinophils (%) (Auto) 14 % (0-3) 11 % (0-3) Basophils (%) (Auto) 1 % (0-3) 1 % (0-3) Neutrophils # (Auto) 3.4 x10^3uL (1.8-7.7) 3.7 x10^3uL (1.8-7.7) Lymphocytes # (Auto) 2.0 x10^3/uL (1.0-4.8) 3.1 x10^3/uL (1.0-4.8) Monocytes # (Auto) 1.0 x10^3/uL (0.0-1.1) 1.0 x10^3/uL (0.0-1.1) Eosinophils # (Auto) 1.1 x10^3/uL (0.0-0.7) 1.0 x10^3/uL (0.0-0.7) Basophils # (Auto) 0.1 x10^3/uL (0.0-0.2) 0.1 x10^3/uL (0.0-0.2) Sodium Level 142 mmol/L (136-145) 143 mmol/L (136-145) Potassium Level 3.6 mmol/L (3.5-5.1) 3.9 mmol/L (3.5-5.1) Chloride Level 105 mmol/L (98-107) 106 mmol/L (98-107) Carbon Dioxide Level 29 mmol/L (21-32) 28 mmol/L (21-32) Anion Gap 8 (6-14) 9 (6-14) Blood Urea Nitrogen 8 mg/dL (7-20) 8 mg/dL (7-20) Creatinine 0.6 mg/dL (0.6-1.0) 0.7 mg/dL (0.6-1.0) Estimated GFR (Cockcroft-Gault) 103.8 86.9 BUN/Creatinine Ratio 13 (6-20) 11 (6-20) Glucose Level 88 mg/dL (70-99) 93 mg/dL (70-99) Total Bilirubin 0.3 mg/dL (0.2-1.0) 0.3 mg/dL (0.2-1.0) Aspartate Amino Transf (AST/SGOT) 35 U/L (15-37) 64 U/L (15-37) Alanine Aminotransferase (ALT/SGPT) 53 U/L (14-59) 95 U/L (14-59) Alkaline Phosphatase 25 U/L (46-116) 28 U/L (46-116) C-Reactive Protein, Quantitative 71.3 mg/L (0-3.3) Total Protein 5.2 g/dL (6.4-8.2) 5.7 g/dL (6.4-8.2) Albumin 2.3 g/dL (3.4-5.0) 2.3 g/dL (3.4-5.0) Albumin/Globulin Ratio 0.8 (1.0-1.7) 0.7 (1.0-1.7) Laboratory Tests Test 06/12/17 05:15 White Blood Count 8.8 x10^3/uL (4.0-11.0) Red Blood Count 3.94 x10^6/uL (3.50-5.40) Hemoglobin 12.1 g/dL (12.0-15.5) Hematocrit 35.3 % (36.0-47.0) Mean Corpuscular Volume 90 fL (79-100) Mean Corpuscular Hemoglobin 31 pg (25-35) Mean Corpuscular Hemoglobin Concent 34 g/dL (31-37) Red Cell Distribution Width 13.9 % (11.5-14.5) Platelet Count 305 x10^3/uL (140-400) Neutrophils (%) (Auto) 42 % (31-73) Lymphocytes (%) (Auto) 35 % (24-48) Monocytes (%) (Auto) 11 % (0-9) Eosinophils (%) (Auto) 11 % (0-3) Basophils (%) (Auto) 1 % (0-3) Neutrophils # (Auto) 3.7 x10^3uL (1.8-7.7) Lymphocytes # (Auto) 3.1 x10^3/uL (1.0-4.8) Monocytes # (Auto) 1.0 x10^3/uL (0.0-1.1) Eosinophils # (Auto) 1.0 x10^3/uL (0.0-0.7) Basophils # (Auto) 0.1 x10^3/uL (0.0-0.2) Sodium Level 143 mmol/L (136-145) Potassium Level 3.9 mmol/L (3.5-5.1) Chloride Level 106 mmol/L (98-107) Carbon Dioxide Level 28 mmol/L (21-32) Anion Gap 9 (6-14) Blood Urea Nitrogen 8 mg/dL (7-20) Creatinine 0.7 mg/dL (0.6-1.0) Estimated GFR (Cockcroft-Gault) 86.9 BUN/Creatinine Ratio 11 (6-20) Glucose Level 93 mg/dL (70-99) Calcium Level 7.9 mg/dL (8.5-10.1) Total Bilirubin 0.3 mg/dL (0.2-1.0) Aspartate Amino Transf (AST/SGOT) 64 U/L (15-37) Alanine Aminotransferase (ALT/SGPT) 95 U/L (14-59) Alkaline Phosphatase 28 U/L (46-116) Total Protein 5.7 g/dL (6.4-8.2) Albumin 2.3 g/dL (3.4-5.0) Albumin/Globulin Ratio 0.7 (1.0-1.7) Allergies Allergies Coded Allergies Type Severity Reaction Last Updated Verified I S O L A T I O N *CONTACT* Allergy Unknown 06/12/17 Yes No Known Medication Allergies Allergy Unknown 06/12/17 Yes Disposition/Orders: D/C to Home Patient Instructions SEE PCP 3-7 DAYS VINH CARBALLO MD Jun 12, 2017 10:07
--- NOTE | 2017-06-12 10:13 | DISCH ---
DISCHARGE INSTRUCTIONS Condition on Discharge Condition on Discharge: Stable Activity After Discharge Activity Instructions for Disc: Resume previous activity Bathing Instructions: Shower-keep dressing dry Lifting Instructions after Dis: No heavy lifting, No pulling or pushing Exercise Instruction after Dis: Walk 15 min, 3 x per day Driving Instructions after Dis: Do not drive today Diet after Discharge Diet after Discharge: Cardiac Wound Incision Care Wound/Incision Care: Change dressing Checks after Discharge Checks after discharge: Check blood press - daily Contacting the DR. after DC Call your doctor for: If your condition worsens Treatment/Equipment after DC Adaptive Equipment Issued: VINH Lisa MD Jun 12, 2017 10:12
[2017-06-12 11:00] VITALS: BP 126/81
== END 2017-06-12 11:26 | disposition home or self-care (01) | DRG 871 ==
LOC: ER 08:08 → 5 NORTH 10:26
PROVIDERS: ADMIT Internal Medicine; ATTEND Internal Medicine
DX: A41.9 Sepsis, unspecified organism (principal); N17.0 Acute kidney failure with tubular necrosis; J96.91 Respiratory failure, unspecified with hypoxia; L02.211 Cutaneous abscess of abdominal wall; N39.0 Urinary tract infection, site not specified; I10 Essential (primary) hypertension; E83.42 Hypomagnesemia; F32.9 Major depressive disorder, single episode, unspecified; E66.9 Obesity, unspecified; E83.51 Hypocalcemia; K21.9 Gastro-esophageal reflux disease without esophagitis; M19.90 Unspecified osteoarthritis, unspecified site; E87.6 Hypokalemia; Z79.899 Other long term (current) drug therapy; Z68.33 Body mass index [BMI] 33.0-33.9, adult; Z99.81 Dependence on supplemental oxygen
CPT/HCPCS: 36415; 71275; 72156; 74022; 74177; 76705; 80048; 80053; 81001; 82306; 82310; 82550; 82607; 83605; 83690; 83735; 83880; 84443; 84484; 85007; 85025; 85379; 85610; 85730; 86140; 87040; 87071; 87075; 87086; 87186; 87205; 87804; 94640; 94760; 96361; 96365; 96375; A9585; J0696; J2270; J2405; J2543; J2550; J3010; J7030; J7620; Q9967; 97110; 99291-25